=== PATIENT | female | born 1960 | race Caucasian/White ===

== ENCOUNTER 2018-05-27 12:14 | Inpatient (IN) ==
--- NOTE | 2018-05-27 12:22 | ED ---
HPI General Chief Complaint: Stroke Alert Stated Complaint: Stroke Alert/Evac Time Seen by Provider: 05/27/18 12:17 Source: patient and EMS Mode of arrival: EMS Limitations: language barrier History of Present Illness Onset (ago): hour(s) (Patient was last seen normal according to last night after going to sleep. Woke up today with slurred speech) Timing confirmed by: spouse Location: speech and dysarthria History of same: No Severity: moderate Relieving factors: none Exacerbating factors: none On Anticoagulants: No Associated symptoms: denies other symptoms Treatments Prior to Arrival: none Related Data Home Medications Medication Instructions Recorded Confirmed aspirin 325 mg PO DAILY 05/27/18 05/27/18 Previous Rx's Medication Instructions Recorded amlodipine [Norvasc] 2.5 mg PO DAILY #30 tab 06/01/18 atorvastatin 40 mg PO HS #30 tab 06/01/18 clonidine [[id number]] 1 patch TRANSDERMAL Q7D 30 Days 06/01/18 each clopidogrel [Plavix] 75 mg PO DAILY #30 tab 06/01/18 Allergies Allergy/AdvReac Type Severity Reaction Status Date / Time dopamine Allergy Mild palpitation Verified 05/27/18 12:24 s Review of Systems Except as stated in HPI: all other systems reviewed are negative PMFSH History History Provided By: Patient, Medical Record and Casting Inspector / EMT Social History Social History Substance History: No History of Abuse Second Hand Smoke Exposure: No Smoking Status: Current every day smoker Tobacco Type: Cigarettes How Often Do You Have a Drink Containing Alcohol: 2 to 3 times a week Recent Travel in [facility] within the Last 8 Weeks: No Recent Out of Country Travel within the Last 8 Weeks: No Exam Narrative Exam Narrative: GENERAL: Well-nourished, well-developed patient in no apparent distress. SKIN: Warm and dry. HEAD: Atraumatic. Normocephalic. EYES: Pupils equal and round. No scleral icterus. No injection or drainage. ENT: No nasal bleeding or discharge. Mucous membranes pink and moist. NECK: Trachea midline. No JVD. CARDIOVASCULAR: Regular rate and rhythm. no rubs or gallops RESPIRATORY: No accessory muscle use. Clear to auscultation. Breath sounds equal bilaterally. GASTROINTESTINAL: Abdomen soft, non-tender, nondistended. No rebound or guarding MUSCULOSKELETAL: Extremities without clubbing, cyanosis, or edema. No obvious deformities. NEUROLOGICAL: Awake and alert. No obvious cranial nerve deficits. Motor grossly within normal limits. Five out of 5 muscle strength in the arms and legs. Slurred unintelligible speech. PSYCHIATRIC: Appropriate mood and affect; insight and judgment normal. Course Initial Documented Vital Signs Pulse Oximetry 93 L 05/27/18 12:24 Last Documented Vital Signs Temperature 97.7 F 06/01/18 12:00 Pulse Rate 61 06/01/18 13:25 Respiratory Rate 17 06/01/18 12:00 Blood Pressure 125/87 06/01/18 12:00 Pulse Oximetry 94 L 06/01/18 12:00 Critical Care Time Critical Care Time: Yes Total Critical Care Time: 45 Attestation: Aggregate critical care time was 45 minutes. Time to perform other separately billable procedures was not included in the critical care time. My time did not include minutes spent treating any other patients simultaneously or on activities that did not directly contribute to the patient's treatment. The services I provided to this patient were to treat and/or prevent clinically significant deterioration that could result in: [Intracranial hemorrhage, permanent neurological disability versus ] I provided critical care services requiring my management, as noted below: Chart data review, documentation time, medication orders and management, vital sign assessments/reviewing monitor data, ordering and reviewing lab tests, ordering and interpreting/reviewing x-rays and diagnostic studies, care of the patient and discussion of the patient with the admitting physicians. NIH Stroke Scale NIH Stroke Scale Level of Consciousness: 0-Alert Orientation Questions: 0-Answers both correct Responds to Commands: 0-Both tasks correct Gaze Eye Movement: 0-Horizontal movement WNL Visual Blak[place]: 0-No visual field defect Facial Movement: 0-Normal Motor Functions Arm LEFT: 0-No drift Motor Functions Arm RIGHT: 0-No drift Motor Functions Leg LEFT: 0-No drift Motor Functions Leg RIGHT: 0-No drift Limb Ataxia: 0-No ataxia Sensory Loss: 0-No sensory loss Best Language: 2-Severe aphasia Articulation: 2-Severe dysarthria Extinction or Inattention Sensory: 0-Absent Total: 4 Medical Decision Making MDM Narrative Medical decision making narrative: Discussed case with Dr. Vanessa neurologist, who stated patient is not a candidate for TPA due to the unknown onset of symptoms, since patient woke up with symptoms dr sevilla at bedside evaluated patient and corroborated history with who CONFIRMED that patient woke up with these symptoms. patient is NOT a tpa candidate discussed carotid stenosis with vascular surgeon dr Boyer Lab Data Lab results reviewed: Yes I reviewed the patient's lab results. Lab results narrative: In particular creatinine is 0.6 resulted from i-STAT, sodium 143, potassium 4.1, chloride 110, BUN 5, glucose 83, hemoglobin 13.3, hematocrit 39 Result diagrams: 05/29/18 06:34 05/27/18 12:17 Lab Results 05/27/18 05/27/18 05/27/18 Range/Units 12:17 12:17 12:17 WBC 5.6 (4.0-11.0) th/mm3 RBC 4.47 (4.00-5.30) mil/mm3 Hgb 14.6 (11.6-15.3) gm/dL POC Hgb (Calc) (11.6-15.3) g/dL Hct 42.2 (35.0-46.0) % POC Hct (35-46.0) % MCV 94.5 (80.0-100.0) fL MCH 32.7 (27.0-34.0) pg MCHC 34.6 (32.0-36.0) % RDW 13.2 (11.6-17.2) % Plt Count 213 (150-450) th/mm3 MPV 8.0 (7.0-11.0) fL Neut % (Auto) 38.3 (16.0-70.0) % Lymph % (Auto) 48.9 H (9.0-44.0) % [place] % (Auto) 7.8 (0.0-8.0) % Eos % (Auto) 4.2 H (0.0-4.0) % Baso % (Auto) 0.8 (0.0-2.0) % Neut # (Auto) 2.1 (1.8-7.7) th/mm3 Lymph # (Auto) 2.7 (1.0-4.8) th/mm3 [place] # (Auto) 0.4 (0.0-0.9) th/mm3 Eos # (Auto) 0.2 (0.0-0.4) th/mm3 Baso # (Auto) 0.0 (0.0-0.2) th/mm3 WBC Differential . Differential Comment Auto diff final PT 9.5 L (9.8-11.6) sec INR 0.9 Ratio APTT 24.1 L (24.3-30.1) sec POC Sodium (137-144) mmol/L Sodium 145 (136-145) meq/L POC Potassium (3.6-5.0) mmol/L Potassium 4.3 (3.5-5.1) meq/L POC Chloride (102-111) mmol/L Chloride 113 H (98-107) meq/L Carbon Dioxide 20.1 L (21.0-32.0) meq/L Anion Gap 12 (5-15) meq/L POC BUN (5-21) mg/dL BUN 7 (7-18) mg/dL Creatinine 0.64 (0.50-1.00) mg/dL POC Creatinine (0.6-1.3) mg/dL Estimated GFR 80 L (>89) mL/min POC Glucose (68-110) mg/dL Random Glucose 80 (74-106) mg/dL Calcium 9.7 (8.5-10.1) mg/dL Total Bilirubin 0.3 (0.2-1.0) mg/dL AST 21 (15-37) U/L ALT 17 (10-53) U/L Alkaline Phosphatase 134 H (45-117) U/L Total Creatine Kinase 83 (26-192) U/L Troponin I Less than 0.02 L (0.02-0.05) ng/mL Total Protein 7.5 (6.4-8.2) g/dL Albumin 3.6 (3.4-5.0) g/dL Triglycerides (42-150) mg/dL Cholesterol (120-200) mg/dL LDL Cholesterol, Calc (0-99) mg/dL HDL Cholesterol (40.0-60.0) mg/dL Cholesterol/HDL Ratio Ratio Urine Color (Yellw/Straw) Urine Clarity (Clear) Urine pH (5.0-8.5) Ur Specific Pinson (1.002-1.035) Urine Protein (Neg-Trace) mg/dL Urine Glucose (UA) (Negative) mg/dL Urine Ketones (Negative) mg/dL Urine Occult Blood (Negative) Urine Nitrate (Negative) Urine Bilirubin (Negative) Urine Urobilinogen (Less than 2) mg/dL Ur Leukocyte Esterase (Negative) Urine RBC (0-3) /hpf Urine WBC (0-5) /hpf Ur Squamous Epith Cells (0-5) /hpf Hyaline Casts (0-3) /lpf Micro UA Comment Urine Culture Comments Nasal Screen MRSA (PCR) (Negative) Urine Opiates Screen (Neg) Ur Barbiturates Screen (Neg) Ur Amphetamines Screen (Neg) U Benzodiazepines Scrn (Neg) Urine Cocaine Screen (Neg) U Cannabinoids Screen (Neg) Serum Alcohol 42 H (0-5) mg/dL Blood Type Antibody Screen 05/27/18 05/27/18 05/27/18 Range/Units 12:17 12:17 16:45 WBC (4.0-11.0) th/mm3 RBC (4.00-5.30) mil/mm3 Hgb (11.6-15.3) gm/dL POC Hgb (Calc) 13.3 (11.6-15.3) g/dL Hct (35.0-46.0) % POC Hct 39.0 (35-46.0) % MCV (80.0-100.0) fL MCH (27.0-34.0) pg MCHC (32.0-36.0) % RDW (11.6-17.2) % Plt Count (150-450) th/mm3 MPV (7.0-11.0) fL Neut % (Auto) (16.0-70.0) % Lymph % (Auto) (9.0-44.0) % [place] % (Auto) (0.0-8.0) % Eos % (Auto) (0.0-4.0) % Baso % (Auto) (0.0-2.0) % Neut # (Auto) (1.8-7.7) th/mm3 Lymph # (Auto) (1.0-4.8) th/mm3 [place] # (Auto) (0.0-0.9) th/mm3 Eos # (Auto) (0.0-0.4) th/mm3 Baso # (Auto) (0.0-0.2) th/mm3 WBC Differential Differential Comment PT (9.8-11.6) sec INR Ratio APTT (24.3-30.1) sec POC Sodium 143 (137-144) mmol/L Sodium (136-145) meq/L POC Potassium 4.1 (3.6-5.0) mmol/L Potassium (3.5-5.1) meq/L POC Chloride 110 (102-111) mmol/L Chloride (98-107) meq/L Carbon Dioxide (21.0-32.0) meq/L Anion Gap (5-15) meq/L POC BUN 5 (5-21) mg/dL BUN (7-18) mg/dL Creatinine (0.50-1.00) mg/dL POC Creatinine 0.6 (0.6-1.3) mg/dL Estimated GFR (>89) mL/min POC Glucose 83 (68-110) mg/dL Random Glucose (74-106) mg/dL Calcium (8.5-10.1) mg/dL Total Bilirubin (0.2-1.0) mg/dL AST (15-37) U/L ALT (10-53) U/L Alkaline Phosphatase (45-117) U/L Total Creatine Kinase (26-192) U/L Troponin I (0.02-0.05) ng/mL Total Protein (6.4-8.2) g/dL Albumin (3.4-5.0) g/dL Triglycerides (42-150) mg/dL Cholesterol (120-200) mg/dL LDL Cholesterol, Calc (0-99) mg/dL HDL Cholesterol (40.0-60.0) mg/dL Cholesterol/HDL Ratio Ratio Urine Color (Yellw/Straw) Urine Clarity (Clear) Urine pH (5.0-8.5) Ur Specific Pinson (1.002-1.035) Urine Protein (Neg-Trace) mg/dL Urine Glucose (UA) (Negative) mg/dL Urine Ketones (Negative) mg/dL Urine Occult Blood (Negative) Urine Nitrate (Negative) Urine Bilirubin (Negative) Urine Urobilinogen (Less than 2) mg/dL Ur Leukocyte Esterase (Negative) Urine RBC (0-3) /hpf Urine WBC (0-5) /hpf Ur Squamous Epith Cells (0-5) /hpf Hyaline Casts (0-3) /lpf Micro UA Comment Urine Culture Comments Nasal Screen MRSA (PCR) (Negative) Urine Opiates Screen Neg (Neg) Ur Barbiturates Screen Neg (Neg) Ur Amphetamines Screen Neg (Neg) U Benzodiazepines Scrn Neg (Neg) Urine Cocaine Screen Neg (Neg) U Cannabinoids Screen Neg (Neg) Serum Alcohol (0-5) mg/dL Blood Type A Positive Antibody Screen Negative 05/27/18 05/27/18 05/27/18 Range/Units 16:45 17:36 19:45 WBC 7.1 (4.0-11.0) th/mm3 RBC 4.40 (4.00-5.30) mil/mm3 Hgb 14.0 (11.6-15.3) gm/dL POC Hgb (Calc) (11.6-15.3) g/dL Hct 41.4 (35.0-46.0) % POC Hct (35-46.0) % MCV 94.0 (80.0-100.0) fL MCH 31.9 (27.0-34.0) pg MCHC 33.9 (32.0-36.0) % RDW 13.4 (11.6-17.2) % Plt Count 189 (150-450) th/mm3 MPV 8.4 (7.0-11.0) fL Neut % (Auto) (16.0-70.0) % Lymph % (Auto) (9.0-44.0) % [place] % (Auto) (0.0-8.0) % Eos % (Auto) (0.0-4.0) % Baso % (Auto) (0.0-2.0) % Neut # (Auto) (1.8-7.7) th/mm3 Lymph # (Auto) (1.0-4.8) th/mm3 [place] # (Auto) (0.0-0.9) th/mm3 Eos # (Auto) (0.0-0.4) th/mm3 Baso # (Auto) (0.0-0.2) th/mm3 WBC Differential Differential Comment PT (9.8-11.6) sec INR Ratio APTT (24.3-30.1) sec POC Sodium (137-144) mmol/L Sodium (136-145) meq/L POC Potassium (3.6-5.0) mmol/L Potassium (3.5-5.1) meq/L POC Chloride (102-111) mmol/L Chloride (98-107) meq/L Carbon Dioxide (21.0-32.0) meq/L Anion Gap (5-15) meq/L POC BUN (5-21) mg/dL BUN (7-18) mg/dL Creatinine (0.50-1.00) mg/dL POC Creatinine (0.6-1.3) mg/dL Estimated GFR (>89) mL/min POC Glucose (68-110) mg/dL Random Glucose (74-106) mg/dL Calcium (8.5-10.1) mg/dL Total Bilirubin (0.2-1.0) mg/dL AST (15-37) U/L ALT (10-53) U/L Alkaline Phosphatase (45-117) U/L Total Creatine Kinase (26-192) U/L Troponin I (0.02-0.05) ng/mL Total Protein (6.4-8.2) g/dL Albumin (3.4-5.0) g/dL Triglycerides (42-150) mg/dL Cholesterol (120-200) mg/dL LDL Cholesterol, Calc (0-99) mg/dL HDL Cholesterol (40.0-60.0) mg/dL Cholesterol/HDL Ratio Ratio Urine Color Yellow (Yellw/Straw) Urine Clarity Clear (Clear) Urine pH 5.0 (5.0-8.5) Ur Specific [place]inson 1.034 (1.002-1.035) Urine Protein Negative (Neg-Trace) mg/dL Urine Glucose (UA) Negative (Negative) mg/dL Urine Ketones Negative (Negative) mg/dL Urine Occult Blood Negative (Negative) Urine Nitrate Negative (Negative) Urine Bilirubin Negative (Negative) Urine Urobilinogen Less than 2 (Less than 2) mg/dL Ur Leukocyte Esterase Negative (Negative) Urine RBC Less than 1 (0-3) /hpf Urine WBC Less than 1 (0-5) /hpf Ur Squamous Epith Cells <1 (0-5) /hpf Hyaline Casts 1 (0-3) /lpf Micro UA Comment Culture not ind Urine Culture Comments Culture not ind Nasal Screen MRSA (PCR) Not detected (Negative) Urine Opiates Screen (Neg) Ur Barbiturates Screen (Neg) Ur Amphetamines Screen (Neg) U Benzodiazepines Scrn (Neg) Urine Cocaine Screen (Neg) U Cannabinoids Screen (Neg) Serum Alcohol (0-5) mg/dL Blood Type Antibody Screen 05/27/18 05/27/18 05/28/18 Range/Units 19:45 20:53 01:43 WBC 7.4 (4.0-11.0) th/mm3 RBC 4.25 (4.00-5.30) mil/mm3 Hgb 13.6 (11.6-15.3) gm/dL POC Hgb (Calc) (11.6-15.3) g/dL Hct 39.6 (35.0-46.0) % POC Hct (35-46.0) % MCV 93.3 (80.0-100.0) fL MCH 31.9 (27.0-34.0) pg MCHC 34.2 (32.0-36.0) % RDW 13.3 (11.6-17.2) % Plt Count 177 (150-450) th/mm3 MPV 8.1 (7.0-11.0) fL Neut % (Auto) (16.0-70.0) % Lymph % (Auto) (9.0-44.0) % [place] % (Auto) (0.0-8.0) % Eos % (Auto) (0.0-4.0) % Baso % (Auto) (0.0-2.0) % Neut # (Auto) (1.8-7.7) th/mm3 Lymph # (Auto) (1.0-4.8) th/mm3 [place] # (Auto) (0.0-0.9) th/mm3 Eos # (Auto) (0.0-0.4) th/mm3 Baso # (Auto) (0.0-0.2) th/mm3 WBC Differential Differential Comment PT (9.8-11.6) sec INR Ratio APTT 45.5 H D (24.3-30.1) sec POC Sodium (137-144) mmol/L Sodium (136-145) meq/L POC Potassium (3.6-5.0) mmol/L Potassium (3.5-5.1) meq/L POC Chloride (102-111) mmol/L Chloride (98-107) meq/L Carbon Dioxide (21.0-32.0) meq/L Anion Gap (5-15) meq/L POC BUN (5-21) mg/dL BUN (7-18) mg/dL Creatinine (0.50-1.00) mg/dL POC Creatinine (0.6-1.3) mg/dL Estimated GFR (>89) mL/min POC Glucose (68-110) mg/dL Random Glucose (74-106) mg/dL Calcium (8.5-10.1) mg/dL Total Bilirubin (0.2-1.0) mg/dL AST (15-37) U/L ALT (10-53) U/L Alkaline Phosphatase (45-117) U/L Total Creatine Kinase (26-192) U/L Troponin I Less than 0.02 L (0.02-0.05) ng/mL Total Protein (6.4-8.2) g/dL Albumin (3.4-5.0) g/dL Triglycerides (42-150) mg/dL Cholesterol (120-200) mg/dL LDL Cholesterol, Calc (0-99) mg/dL HDL Cholesterol (40.0-60.0) mg/dL Cholesterol/HDL Ratio Ratio Urine Color (Yellw/Straw) Urine Clarity (Clear) Urine pH (5.0-8.5) Ur Specific Pinson (1.002-1.035) Urine Protein (Neg-Trace) mg/dL Urine Glucose (UA) (Negative) mg/dL Urine Ketones (Negative) mg/dL Urine Occult Blood (Negative) Urine Nitrate (Negative) Urine Bilirubin (Negative) Urine Urobilinogen (Less than 2) mg/dL Ur Leukocyte Esterase (Negative) Urine RBC (0-3) /hpf Urine WBC (0-5) /hpf Ur Squamous Epith Cells (0-5) /hpf Hyaline Casts (0-3) /lpf Micro UA Comment Urine Culture Comments Nasal Screen MRSA (PCR) (Negative) Urine Opiates Screen (Neg) Ur Barbiturates Screen (Neg) Ur Amphetamines Screen (Neg) U Benzodiazepines Scrn (Neg) Urine Cocaine Screen (Neg) U Cannabinoids Screen (Neg) Serum Alcohol (0-5) mg/dL Blood Type Antibody Screen 05/28/18 05/29/18 05/29/18 Range/Units 01:43 06:34 06:34 WBC 9.4 (4.0-11.0) th/mm3 RBC 4.30 (4.00-5.30) mil/mm3 Hgb 14.1 (11.6-15.3) gm/dL POC Hgb (Calc) (11.6-15.3) g/dL Hct 41.1 (35.0-46.0) % POC Hct (35-46.0) % MCV 95.6 (80.0-100.0) fL MCH 32.8 (27.0-34.0) pg MCHC 34.3 (32.0-36.0) % RDW 13.4 (11.6-17.2) % Plt Count 190 (150-450) th/mm3 MPV 8.2 (7.0-11.0) fL Neut % (Auto) (16.0-70.0) % Lymph % (Auto) (9.0-44.0) % [place] % (Auto) (0.0-8.0) % Eos % (Auto) (0.0-4.0) % Baso % (Auto) (0.0-2.0) % Neut # (Auto) (1.8-7.7) th/mm3 Lymph # (Auto) (1.0-4.8) th/mm3 [place] # (Auto) (0.0-0.9) th/mm3 Eos # (Auto) (0.0-0.4) th/mm3 Baso # (Auto) (0.0-0.2) th/mm3 WBC Differential Differential Comment PT (9.8-11.6) sec INR Ratio APTT 59.5 H D (24.3-30.1) sec POC Sodium (137-144) mmol/L Sodium (136-145) meq/L POC Potassium (3.6-5.0) mmol/L Potassium (3.5-5.1) meq/L POC Chloride (102-111) mmol/L Chloride (98-107) meq/L Carbon Dioxide (21.0-32.0) meq/L Anion Gap (5-15) meq/L POC BUN (5-21) mg/dL BUN (7-18) mg/dL Creatinine (0.50-1.00) mg/dL POC Creatinine (0.6-1.3) mg/dL Estimated GFR (>89) mL/min POC Glucose (68-110) mg/dL Random Glucose (74-106) mg/dL Calcium (8.5-10.1) mg/dL Total Bilirubin (0.2-1.0) mg/dL AST (15-37) U/L ALT (10-53) U/L Alkaline Phosphatase (45-117) U/L Total Creatine Kinase (26-192) U/L Troponin I (0.02-0.05) ng/mL Total Protein (6.4-8.2) g/dL Albumin (3.4-5.0) g/dL Triglycerides 90 (42-150) mg/dL Cholesterol 310 H (120-200) mg/dL LDL Cholesterol, Calc 217 H (0-99) mg/dL HDL Cholesterol 75.0 H (40.0-60.0) mg/dL Cholesterol/HDL Ratio 4.13 Ratio Urine Color (Yellw/Straw) Urine Clarity (Clear) Urine pH (5.0-8.5) Ur Specific Pinson (1.002-1.035) Urine Protein (Neg-Trace) mg/dL Urine Glucose (UA) (Negative) mg/dL Urine Ketones (Negative) mg/dL Urine Occult Blood (Negative) Urine Nitrate (Negative) Urine Bilirubin (Negative) Urine Urobilinogen (Less than 2) mg/dL Ur Leukocyte Esterase (Negative) Urine RBC (0-3) /hpf Urine WBC (0-5) /hpf Ur Squamous Epith Cells (0-5) /hpf Hyaline Casts (0-3) /lpf Micro UA Comment Urine Culture Comments Nasal Screen MRSA (PCR) (Negative) Urine Opiates Screen (Neg) Ur Barbiturates Screen (Neg) Ur Amphetamines Screen (Neg) U Benzodiazepines Scrn (Neg) Urine Cocaine Screen (Neg) U Cannabinoids Screen (Neg) Serum Alcohol (0-5) mg/dL Blood Type Antibody Screen Imaging Data My impression: I reviewed all images as well as radiological reports shared the information with vascular surgeon and admitting physicians Radiologist's impression: Chest X-Ray 05/27/18 12:24 CONCLUSION: No acute cardiopulmonary findings. Head CT 05/27/18 12:24 CONCLUSION: 1. Prominent nonspecific white matter changes left frontal periventricular white matter. 2. Otherwise unremarkable CT brain. Head CTA 05/27/18 12:24 CONCLUSION: High-grade stenosis at the origin of the left internal carotid artery and the [place] appears intact except for chronic atelectatic changes. Neck CTA 05/27/18 12:24 CONCLUSION: 1. Left carotid: Extensive plaquing at the bifurcation with both hard and soft plaque present resulting in stenosis estimated to be in the range of 90% or greater by NASCET criteria. 2. Right carotid: Mild plaquing at the bifurcation there is both hard and soft plaque present. This results in a mild degree of stenosis in the origin of the right internal carotid. Head CT 05/30/18 17:03 CONCLUSION: Interval development of a new ill-defined hypodensity in the left novak radiata. The appearance is nonspecific, but since it has developed in the last 3 days, a nonhemorrhagic infarction is in the differential considerations. Head CTA 05/30/18 17:08 CONCLUSION: 1. 3 mm anterior communicating aneurysm. 2. Otherwise negative CTA [place]. Neck CTA 05/30/18 17:08 CONCLUSION: 1. Expected postsurgical changes from left carotid endarterectomy. The left carotid system is widely patent. 2. No stenosis in the right carotid. 3. Right dominant vertebral system. Discharge Plan Discharge Disposition Patient Disposition: 30 Still Patient Discharge Condition Condition: Stable Discharge Order Discharge Orders: Discharge Order (Routine); Ordered 06/01/18 Ordered By: John Ross Discharge Details Anticipated Discharge Date: 06/01/18 Diagnosis: Brain TIA, Carotid artery stenosis Physicians Team ED Provider: Gonzalo Morillo Primary Care Provider: Primary Care Yumiko,Hollie Attending Provider: John Ross Other Providers: Fannie Lyons Mandeep Status ED Status: Left Department Discharge Information Discharge Date/Time: 05/27/18 17:22
--- NOTE | 2018-05-27 12:39 | CT ---
EXAM DATE: 05/27/2018 12:32 PM EDT AGE/SEX: 89 years / Female INDICATIONS: Stroke alert, right sided weakness and slurred speech. CLINICAL DATA: This is the patient's initial encounter. Patient reports that signs and symptoms have been present for 1 day and indicates a pain score of 0/10. MEDICAL/SURGICAL HISTORY: Cardiovascular disease. Pacemaker. RADIATION DOSE: 56.35 CTDI (mGy) COMPARISON: No prior exams available for comparison. Report was called by Dr. Preston to [facility] at 12:37 PM] TECHNIQUE: CT of the head without contrast. Using automated exposure control and adjustment of the mA and/or kV according to patient size, radiation dose was kept as low as reasonably achievable to ob tain optimal diagnostic quality images. DICOM format image data is available electronically for revi ew and comparison. FINDINGS: Cerebrum: The ventricles are normal for age. Prominent area of low-density in the left frontal periv entricular white matter. No evidence of midline shift, mass lesion, hemorrhage or acute infarction. No extraaxial fluid collections are seen. Posterior Fossa: The cerebellum and brainstem are intact. The 4th ventricle is midline. The cerebe llopontine angle is unremarkable. Extracranial: The visualized portion of the orbits is intact. Skull: The calvaria is intact. No evidence of skull fracture. CONCLUSION: 1. Prominent nonspecific white matter changes left frontal periventricular white matter. 2. Otherwise unremarkable CT brain. Electronically signed by: Ryan Preston MD 05/27/2018 12:37 PM EDT
[2018-05-27 12:40] LABS: Baso % (Auto) 0.8 % (0.0-2.0); Eos # (Auto) 0.2 th/mm3 (0.0-0.4); Eos % (Auto) 4.2 % (0.0-4.0); Hematocrit 42.2 % (35.0-46.0); Hemoglobin 14.6 gm/dL (11.6-15.3); Lymph # (Auto) 2.7 th/mm3 (1.0-4.8); Lymph % (Auto) 48.9 % (9.0-44.0); Mean Corpuscular HGB Conc 34.6 % (32.0-36.0); Mean Corpuscular Hemoglobin 32.7 pg (27.0-34.0); Mean Corpuscular Volume 94.5 fL (80.0-100.0); Mono # (Auto) 0.4 th/mm3 (0.0-0.9); Mono % (Auto) 7.8 % (0.0-8.0); Neut # (Auto) 2.1 th/mm3 (1.8-7.7); Neut % (Auto) 38.3 % (16.0-70.0); Platelet Count 213 th/mm3 (150-450); Red Blood Count 4.47 mil/mm3 (4.00-5.30); Red Cell Distribution Width 13.2 % (11.6-17.2); White Blood Count 5.6 th/mm3 (4.0-11.0)
--- NOTE | 2018-05-27 12:55 | CT ---
EXAM DATE: 05/27/2018 12:43 PM EDT AGE/SEX: 89 years / Female INDICATIONS: Stroke alert, right sided weakness and slurred speech. CLINICAL DATA: This is the patient's initial encounter. Patient reports that signs and symptoms have been present for 1 day and indicates a pain score of 0/10. MEDICAL/SURGICAL HISTORY: Cardiovascular disease. Pacemaker. RADIATION DOSE: 11.19 CTDI (mGy) ; Combined studies COMPARISON: No prior exams available for comparison. TECHNIQUE: Volumetric scanning was performed using a multi-row detector CT scanner during bolus infu nohemi of 75 ml Visipaque 320 (iodixanol) nonionic water-soluble contrast as a cumulative dose for mul tiple exams. The data was post processed with a variety of visualization algorithms including full volume maximum intensity projection, multi-planar sliding thin slab reformation, curved planar reform ation, and surface rendering techniques. Using automated exposure control and adjustment of the mA a nd/or kV according to patient size, radiation dose was kept as low as reasonably achievable to obtain optimal diagnostic quality images. DICOM format image data is available electronically for review a nd comparison. FINDINGS: Slight atherosclerotic changes are seen involving multiple branches bilaterally without vessel trunca tion or filling defects. There is high-grade stenosis at the origin of the left internal carotid david ry on the order of 95-98% with atherosclerotic plaquing at this site. CONCLUSION: High-grade stenosis at the origin of the left internal carotid artery and the [place] of [place] appears intact except for chronic atelectatic changes. Electronically signed by: Shirley Givens MD 05/27/2018 12:53 PM EDT
[2018-05-27 12:59] LABS: Activated Partial Thrombo Time 24.1 sec (24.3-30.1); INR 0.9 Ratio; Prothrombin Time 9.5 sec (9.8-11.6)
[2018-05-27 13:09] LABS: Albumin 3.6 g/dL (3.4-5.0); Anion Gap 12 meq/L (5-15); Blood Urea Nitrogen 7 mg/dL (7-18); Calcium 9.7 mg/dL (8.5-10.1); Carbon Dioxide 20.1 meq/L (21.0-32.0); Chloride 113 meq/L (98-107); Glomerular Filtration Rate 80 mL/min (>89); Glucose,Random 80 mg/dL (74-106); Sodium 145 meq/L (136-145)
[2018-05-27 13:11] LABS: Alcohol 42 mg/dL (0-5)
--- NOTE | 2018-05-27 13:41 | CT ---
EXAM DATE: 05/27/2018 1:17 PM EDT AGE/SEX: 89 years / Female INDICATIONS: Stroke alert, right sided weakness and slurred speech. CLINICAL DATA: This is the patient's initial encounter. Patient reports that signs and symptoms have been present for 1 day and indicates a pain score of 0/10. MEDICAL/SURGICAL HISTORY: Cardiovascular disease. Pacemaker. RADIATION DOSE: 11.19 CTDI (mGy) COMPARISON: No prior exams available for comparison. TECHNIQUE: Volumetric scanning was performed using a multirow detector CT scanner during bolus infus ion of 75 ml Visipaque 320 (iodixanol) nonionic water-soluble contrast as a cumulative dose for mult iple exams. The data was postprocessed with a variety of visualization algorithms including full-vo lume maximum intensity projection, multiplanar sliding thin-slab reformation, curved-planar reformati on, and surface-rendering techniques. Using automated exposure control and adjustment of the mA and/ or kV according to patient size, radiation dose was kept as low as reasonably achievable to obtain op timal diagnostic quality images. DICOM format image data is available electronically for review and comparison. Elevated flow velocities and ICA/CCA ratios have been found to correlate with increased degrees of ve ssel stenosis, calculated as percentage of diameter relative to a normal segment of distal ICA/CCA. FINDINGS: Aortic arch: There is normal anatomic branching of the great vessels from the arch. The origins of th e great vessels are widely patent. Right carotid: The right common carotid is widely patent. There is atherosclerotic plaquing at the bi furcation. There is both hard and soft plaque present. This results in a mild degree of stenosis in t he origin of the right internal carotid. In several projections this is estimated to be in the range of 15-20% by NASCET criteria. Left carotid: The left common carotid is widely patent. There is extensive atherosclerotic plaquing a t the bifurcation with both hard and soft plaque present. This results in a very high-grade stenosis in the origin of the left internal carotid. In several projections this is estimated to be in the ran ge of 90% or greater by NASCET criteria. The more cephalad portion of the internal carotid is patent. Vertebral circulation: Both vertebral arteries are patent. The limited portion of basilar circulation visualized is patent. CONCLUSION: 1. Left carotid: Extensive plaquing at the bifurcation with both hard and soft plaque present result ing in stenosis estimated to be in the range of 90% or greater by NASCET criteria. 2. Right carotid: Mild plaquing at the bifurcation there is both hard and soft plaque present. This results in a mild degree of stenosis in the origin of the right internal carotid. Electronically signed by: Armani Cazares MD 05/27/2018 1:39 PM EDT
[2018-05-27 13:52] LABS: Alanine Aminotransferase 17 U/L (10-53); Alkaline Phosphatase 134 U/L (45-117); Total Protein 7.5 g/dL (6.4-8.2)
--- NOTE | 2018-05-27 13:52 | XR ---
EXAM DATE: 05/27/2018 1:41 PM EDT AGE/SEX: 89 years / Female INDICATIONS: . Stroke alert. CLINICAL DATA: This is the patient's initial encounter. Patient reports that signs and symptoms have been present for 1 day and indicates a pain score of Nonresponsive. MEDICAL/SURGICAL HISTORY: . Unobtainable. Pacemaker. COMPARISON: No prior exams available for comparison. FINDINGS: The heart is at the upper limits of normal in size. The lungs are clear. There is a transvenous pacer in good position. The visualized bony structures are intact. CONCLUSION: No acute cardiopulmonary findings. Electronically signed by: Armani Cazares MD 05/27/2018 1:50 PM EDT
--- NOTE | 2018-05-27 13:54 | MB ---
cc: Indra Jim MD, PhD DATE: 05/27/2018 REASON FOR CONSULTATION: Stroke alert. HISTORY OF PRESENT ILLNESS: This is a very pleasant patient who has a history of pacemaker placement, coronary artery disease, OK in the past, who was well until this morning when she woke up around 10:00 a.m., was noted to have significant difficulty with her speech with dysarthria, difficulty getting words out. She had some weakness on the right arm as well. She tried to reach for some paper with the right arm and had difficulty coordinating the right arm. Her felt that she was normal yesterday when she went to sleep, but is definite that she woke up with these symptoms. He states they did not occur after awakening, but she woke up with them. He called the ambulance. By the time the paramedics got there apparently, her symptoms improved, her speech was almost back to normal, right-sided strength was better; however, she waxed and waned in the interim having increasing weakness on the right with more difficulty with speech, which has since improved somewhat, but not back to her baseline state. She has no prior history of stroke. She does not take any anticoagulants. She takes an aspirin a day. PAST MEDICAL HISTORY: She has history of pacemaker placement, history of coronary artery disease with coronary stent, history of OK in the past. MEDICATIONS: The only medicine she takes at home is aspirin 325 mg daily, but she states she ran out of this several days ago. SOCIAL HISTORY: She does smoke. She does drink alcohol 2-3 times a week. NEUROLOGICAL EXAMINATION: VITAL SIGNS: Blood pressure 155/91, pulse is 60, respiratory rate is 18. HIGHER CORTICAL FUNCTION: She is alert. Her speech is very dysarthric. She has somewhat difficulty with expression. Mild expressive aphasia is present. She can repeat simple phrases. She can follow commands. There is no neglect. CRANIAL NERVES: She has got a very minimal right upper motor neuron 7 palsy. Pupils 2 mm, symmetric and reactive. The extraocular movements are intact. MOTOR EXAM: At the present time, she has 5/5 strength of all major groups in both upper and lower extremities. She has no pronator drift. Reflexes are 2+ biceps symmetric, 1+ brachioradialis symmetric, 1+ triceps symmetric, 2+ patella symmetric, 1+ ankle symmetric. There is no Babinski present. SENSORY EXAM: Intact. IMAGING STUDIES: CT of the brain reveals no acute change present. CT angiogram of the brain is normal with no evidence of large vessel occlusion. CTA of the neck, however, reveals a high-grade stenosis of the left internal carotid artery at its origin and this is approximately 95-98%. LABORATORY DATA: The white count is 5600; hemoglobin 14.6; hematocrit 42.2%; platelet count is 213,000. The PT is 9.5, INR 1.9, APTT 24.1. Sodium is 143, potassium 4.1, chloride 110, CO2 of 20, BUN is 5, creatinine 0.64, GFR is 80, glucose is 83. AST pending. ALT pending. IMPRESSION AND RECOMMENDATIONS: Left hemisphere stroke versus crescendo transient ischemic attack, most likely related to high-grade left internal carotid artery stenosis. The patient's NIH stroke scale is a 4. She has been having a waxing and waning course. She is not a candidate for IV TPA because she awoke with these symptoms and therefore the onset is unknown. There is no evidence of any large vessel occlusion on the brain CTA to indicate intravascular therapy. Regarding the high-grade carotid stenosis, I spoke to Dr. Lyons of the vascular surgery service who recommended starting IV heparin and he will be seeing the patient shortly as well for his recommendations. For the time being, we will keep the patient at bedrest with the head of bed flat. We will start her on IV heparin per ischemic stroke protocol. Thank you for asking me to see this pleasant patient in consultation. Indra Jim MD, PhD JELENA/SINTIA , 01:24 PM , 01:52 PM
[2018-05-27 14:00] LABS: Aspartate Aminotransferase 21 U/L (15-37); Creatine Kinase 83 U/L (26-192); Potassium 4.3 meq/L (3.5-5.1)
[2018-05-27] MEDS ORDERED: [UNRECOGNIZED DRUG - REMARK] OTHER SCH (14:00)
[2018-05-27] MEDS ORDERED: Bisacodyl 10 MG Supp RECTAL PRN (14:02)
[2018-05-27] MEDS: Heparin Drip 25,000 UNIT/250 ML BAG IV.CONT PRN (14:09)
--- NOTE | 2018-05-27 16:34 | P.HP ---
History of Present Illness Primary Care Physician: No Primary Care Physician Chief Complaint: Right-sided weakness, speech problems History of Present Illness: Ms. Herminia Small is a 57-year-old female with a history of tobacco abuse, CAD, symptomatic bradycardia status post pacemaker placement who presented to the emergency department due to right-sided weakness as well as slurred speech. She was last seen normal at bedtime on 05/26/2018. This morning she woke up and went to the bathroom. As she was trying to reach for toilet paper she felt a right arm weakness. She was able to come to the kitchen area and sat down. However her speech was noted to be slurred and difficult to understand. Patient 's called 911 and within 10 minutes EMS came and by that time patient's symptoms were largely resolved. However in the emergency department she had several episodes of slurred speech. ED workup shows left-sided carotid artery stenosis about 90% or greater. Head CT did not identify any evidence of stroke. Neurology evaluated patient and recommended vascular surgery consultation due to high-grade internal carotid artery stenosis on the left side. At the time of this interview, patient is resting well. Denies any chest pain, shortness of breath, fever or chills. No cough or abdominal pain. No changes in bowel or bladder habits. Of note, she was taking Aspirin 325mg Qday except last two days. Past medical history: coronary artery disease status post stent placement in 2007, symptomatic bradycardia status post pacemaker placement Family history: Father, mother, brother and sister had heart disease, stroke, cancer. Social hx : Smokes 1 pack a day. - Diagnosis (1) Brain TIA (2) Carotid artery stenosis Inpatient Certification: I certify that the inpatient services were ordered in accordance with Medicare regulations governing the order. This includes certification that hospital inpatient services are reasonable and necessary and in the case of services not specified as inpatient-only under 42 CFR 419.22(n), that they are appropriately provided as inpatient services in accordance to with the 2-midnight benchmark under 43 CFR 412.3(e) [facility] - History History Provided By: Patient, Medical Record, Strip Cleaner / EMT - Medical History Medical History: Medical History (Last Updated 05/27/18 @ 13:02 by Bony Enrique RN) Myocardial infarction - Tobacco History Tobacco Use In Past 30 Days: Yes Smoking Status: Current every day smoker Tobacco Type: Cigarettes - Alcohol History How Often Do You Have a Drink Containing Alcohol: 2 to 3 times a week - Substance Use History Substance History: No History of Abuse - Travel History Recent Travel in the [place] Within the Last 8 Weeks: No Recent Travel Out of the Country Within the Last 8 Weeks: No - Immunization History Tetanus Immunization: <5 Years Hx Influenza Vaccine This Season: Unable to Assess Medications and Allergies Active Medications: Active Medications Al Hydroxide/Mg Hydroxide (Milk Of Magnesia Liq) 30 ml PO Q12H PRN PRN Reason: Mild Constipation Bisacodyl (Dulcolax Supp) 10 mg RECTAL DAILY PRN PRN Reason: SEVERE CONSITIPATION Sodium Chloride (Ns Inj) 1,000 mls @ 70 mls/hr IV.CONT .[id number] [facility] Stop: 05/28/18 02:47 Heparin Sodium/Dextrose (Heparin/D5w 25,000 U/250 Ml) 25,000 unit in 250 mls @ 12 mls/hr IV.CONT TITRATE PRN; Protocol PRN Reason: Per Protocol Last Admin: 05/27/18 14:09 Dose: 1,200 units/hr, 12 mls/hr Lactulose (Lactulose Liq) 30 ml PO DAILY PRN PRN Reason: SEVERE CONSITIPATION Miscellaneous Information ([facility] [place] [facility]) 1 each OTHER Q15M [facility] Sennosides (Senokot) 17.2 mg PO Q12H PRN PRN Reason: Moderate Constipation Sodium Chloride (Ns Flush) 2 ml IV.FLUSH PRN PRN PRN Reason: FLUSH AFTER USING IV ACCESS Temazepam (Restoril) 15 mg PO HS PRN PRN Reason: INSOMNIA Allergies Allergy/AdvReac Type Severity Reaction Status Date / Time dopamine Allergy Mild palpitation Verified 05/27/18 12:24 s Home Medications Medication Instructions Recorded Confirmed Type aspirin 325 mg PO DAILY 05/27/18 05/27/18 History Exam Vital signs: Vital Signs 05/27/18 12:24 05/27/18 12:28 05/27/18 13:07 Pulse Rate 60 60 Respiratory Rate 18 18 Blood Pressure 155/91 H Pulse Oximetry 93 L 95 99 05/27/18 14:02 05/27/18 16:29 Pulse Rate 57 L 66 Respiratory Rate 18 17 Blood Pressure 162/85 H 171/89 H Pulse Oximetry 100 Intake & Output 05/26/18 05/27/18 05/27/18 18:59 06:59 18:59 Weight 76.7 kg Narrative: GENERAL: This is a well-nourished, well-developed patient, in no apparent distress. SKIN: No rashes, ecchymoses or lesions. Warm and dry. HEAD: Atraumatic. Normocephalic. No temporal or scalp tenderness. EYES: Pupils equal round and reactive. No injection or drainage. ENT: Nose without bleeding, purulent drainage or septal hematoma. Airway patent. NECK: Trachea midline. No lymphadenopathy. Supple, nontender, no meningeal signs. CARDIOVASCULAR: Regular rate and rhythm without murmurs, gallops, or rubs. No JVD. RESPIRATORY: Clear to auscultation. Breath sounds equal bilaterally. No wheezes , rales, or rhonchi. GASTROINTESTINAL: Abdomen soft, non-tender, nondistended. No guarding. MUSCULOSKELETAL: Extremities without clubbing, cyanosis, or edema. Right upper extremity is slightly weaker than left. NEUROLOGICAL: Awake and alert. Cranial nerves II through XII intact. No focal neurological deficits. Normal speech. Results - Labs CBC & Chem 7: 05/27/18 19:45 05/27/18 12:17 Labs: Laboratory Results - last 24 hr 05/27/18 05/27/18 05/27/18 12:17 12:17 12:17 WBC 5.6 RBC 4.47 Hgb 14.6 POC Hgb (Calc) Hct 42.2 POC Hct MCV 94.5 MCH 32.7 MCHC 34.6 RDW 13.2 Plt Count 213 MPV 8.0 Neut % (Auto) 38.3 Lymph % (Auto) 48.9 H [place] % (Auto) 7.8 Eos % (Auto) 4.2 H Baso % (Auto) 0.8 Neut # (Auto) 2.1 Lymph # (Auto) 2.7 [place] # (Auto) 0.4 Eos # (Auto) 0.2 Baso # (Auto) 0.0 WBC Differential . Differential Comment Auto diff final PT 9.5 L INR 0.9 APTT 24.1 L POC Sodium Sodium 145 POC Potassium Potassium 4.3 POC Chloride Chloride 113 H Carbon Dioxide 20.1 L Anion Gap 12 POC BUN BUN 7 Creatinine 0.64 POC Creatinine Estimated GFR 80 L POC Glucose Random Glucose 80 Calcium 9.7 Total Bilirubin 0.3 AST 21 ALT 17 Alkaline Phosphatase 134 H Total Creatine Kinase 83 Troponin I Less than 0.02 L Total Protein 7.5 Albumin 3.6 Serum Alcohol 42 H Blood Type Antibody Screen 05/27/18 05/27/18 12:17 12:17 WBC RBC Hgb POC Hgb (Calc) 13.3 Hct POC Hct 39.0 MCV MCH MCHC RDW Plt Count MPV Neut % (Auto) Lymph % (Auto) [place] % (Auto) Eos % (Auto) Baso % (Auto) Neut # (Auto) Lymph # (Auto) [place] # (Auto) Eos # (Auto) Baso # (Auto) WBC Differential Differential Comment PT INR APTT POC Sodium 143 Sodium POC Potassium 4.1 Potassium POC Chloride 110 Chloride Carbon Dioxide Anion Gap POC BUN 5 BUN Creatinine POC Creatinine 0.6 Estimated GFR POC Glucose 83 Random Glucose Calcium Total Bilirubin AST ALT Alkaline Phosphatase Total Creatine Kinase Troponin I Total Protein Albumin Serum Alcohol Blood Type A Positive Antibody Screen Negative - Imaging Impressions Chest X-Ray 05/27/18 12:24 CONCLUSION: No acute cardiopulmonary findings. Head CT 05/27/18 12:24 CONCLUSION: 1. Prominent nonspecific white matter changes left frontal periventricular white matter. 2. Otherwise unremarkable CT brain. Head CTA 05/27/18 12:24 CONCLUSION: High-grade stenosis at the origin of the left internal carotid artery and the native of [place] appears intact except for chronic atelectatic changes. Neck CTA 05/27/18 12:24 CONCLUSION: 1. Left carotid: Extensive plaquing at the bifurcation with both hard and soft plaque present resulting in stenosis estimated to be in the range of 90% or greater by NASCET criteria. 2. Right carotid: Mild plaquing at the bifurcation there is both hard and soft plaque present. This results in a mild degree of stenosis in the origin of the right internal carotid. Caprini VTE Risk Assessment Caprini VTE Risk Assessment: Moderate/High Risk (score >= 2) Caprini Risk Assessment Model: Point Value = 1 Point Value = 2 Point Value = 3 Point Value = 5 Age 41-60 Minor surgery BMI > 25 kg/m2 Swollen legs Varicose veins or History of unexplained or recurrent spontaneous Oral contraceptives or hormone replacement Sepsis (< 1 month) Serious lung disease, including pneumonia (< 1 month) Abnormal pulmonary function Acute myocardial infarction Congestive heart failure (< 1 month) History of inflammatory bowel disease Medical patient at bed rest Age 61-74 Arthroscopic surgery Major open surgery (> 45 min) Laparoscopic surgery (> 45 min) Malignancy Confined to bed (> 72 hours) Immobilizing plaster cast Central venous access Age >= 75 History of VTE Family history of VTE Factor V Leiden Prothrombin [id number] Lupus anticoagulant Anticardiolipin antibodies Elevated serum homocysteine Heparin-induced thrombocytopenia Other congenital or acquired thrombophilia Stroke (< 1 month) Elective arthroplasty Hip, pelvis, or leg fracture Acute spinal cord injury (< 1 month) Prophylaxis Regimen: Total Risk Factor Score Risk Level Prophylaxis Regimen 0-1 Low Early ambulation 2 Moderate Order ONE of the following: *Sequential Compression Device (SCD) *Heparin 5000 units SQ BID 3-4 Higher Order ONE of the following medications: *Heparin 5000 units SQ TID *Enoxaparin/Lovenox 40 mg SQ daily (WT < 150 kg, CrCl > 30 mL/min) *Enoxaparin/Lovenox 30 mg SQ daily (WT < 150 kg, CrCl > 10-29 mL/min) *Enoxaparin/Lovenox 30 mg SQ BID (WT < 150 kg, CrCl > 30 mL/min) AND/OR *Sequential Compression Device (SCD) 5 or more Highest Order ONE of the following medications: *Heparin 5000 units SQ TID (Preferred with Epidurals) *Enoxaparin/Lovenox 40 mg SQ daily (WT < 150 kg, CrCl > 30 mL/min) *Enoxaparin/Lovenox 30 mg SQ daily (WT < 150 kg, CrCl > 10-29 mL/min) *Enoxaparin/Lovenox 30 mg SQ BID (WT < 150 kg, CrCl > 30 mL/min) AND *Sequential Compression Device (SCD) Assessment and Plan - Assessment (1) Brain TIA Code(s): G45.9 - Transient cerebral ischemic attack, unspecified Status: Acute (2) Carotid artery stenosis Code(s): I65.29 - Occlusion and stenosis of unspecified carotid artery Status : Acute - Plan Ms. Herminia Small is a pleasant 57-year-old female with a history of CAD, symptomatic bradycardia status post pacemaker placement, tobacco abuse who presents to the emergency department due to right-sided weakness and slurred speech. Although the initial symptoms resolved by the time EMS came, patient had several other episodes while she remained in the emergency department. Workup indicated left-sided high-grade carotid stenosis. Neurology as well as vascular surgery were consulted. Likely recurrent TIA High-grade left-sided carotid stenosis -Patient is currently on heparin drip. -Likely surgical intervention tomorrow on 05/28/2018. -Will start Lipitor 40mg QHS. Hx of CAD s/p stent Hx of Symptomatic bradycardia s/p Pacemaker Tobacco abuse - Patient will likely not be able to undergo MRI studies. - No acute cardiac issues. - Will start nicotine patch. Full code. Heparin drip. (1) Brain TIA Qualifiers: Transient cerebral ischemia type: carotid artery syndrome (hemispheric) Qualified Code(s): G45.1 - Carotid artery syndrome (hemispheric) (2) Carotid artery stenosis Qualifiers: Laterality: left Qualified Code(s): I65.22 - Occlusion and stenosis of left carotid artery
[2018-05-27 17:50] LABS: Amphetamine Screen,Urine Neg (Neg); Barbiturate Screen,Urine Neg (Neg); Cannabinoid Screen,Urine Neg (Neg); Cocaine Screen,Urine Neg (Neg)
[2018-05-27 17:51] LABS: Bilirubin,Urine Negative (Negative); Clarity,Urine Clear (Clear); Color,Urine Yellow (Yellw/Straw); Glucose,Urine (UA) Negative (Negative); Hyaline Casts,Urine 1 /lpf (0-3); Leukocyte Esterase,Urine Negative (Negative); Nitrite,Urine Negative (Negative); Specific Gravity,Urine 1.034 (1.002-1.035); Squamous Epithelial Cell,Urine <1 /hpf (0-5)
[2018-05-27 17:53] LABS: Opiate Screen,Urine Neg (Neg)
--- NOTE | 2018-05-27 18:27 | P.PNCA ---
- Note Subjective/Hospital Course: 57-year-old female with a crescendo TIAs and 90-95% stenosis of the left internal carotid artery for urgent carotid endarterectomy within 24 hours Will leave on heparin IV Discussed with Dr. Jim Thank you very much for your referral Full consult dictated J Objective: Vital Signs - 24 hr 05/27/18 12:24 05/27/18 12:28 05/27/18 13:07 Pulse Rate 60 60 Respiratory Rate 18 18 Blood Pressure 155/91 H Pulse Oximetry 93 L 95 99 05/27/18 14:02 05/27/18 16:29 Pulse Rate 57 L 66 Respiratory Rate 18 17 Blood Pressure 162/85 H 171/89 H Pulse Oximetry 100 Labs: Laboratory Results - last 12 hr 05/27/18 05/27/18 05/27/18 12:17 12:17 12:17 WBC 5.6 RBC 4.47 Hgb 14.6 POC Hgb (Calc) Hct 42.2 POC Hct MCV 94.5 MCH 32.7 MCHC 34.6 RDW 13.2 Plt Count 213 MPV 8.0 Neut % (Auto) 38.3 Lymph % (Auto) 48.9 H [place] % (Auto) 7.8 Eos % (Auto) 4.2 H Baso % (Auto) 0.8 Neut # (Auto) 2.1 Lymph # (Auto) 2.7 [place] # (Auto) 0.4 Eos # (Auto) 0.2 Baso # (Auto) 0.0 WBC Differential . Differential Comment Auto diff final PT 9.5 L INR 0.9 APTT 24.1 L POC Sodium Sodium 145 POC Potassium Potassium 4.3 POC Chloride Chloride 113 H Carbon Dioxide 20.1 L Anion Gap 12 POC BUN BUN 7 Creatinine 0.64 POC Creatinine Estimated GFR 80 L POC Glucose Random Glucose 80 Calcium 9.7 Total Bilirubin 0.3 AST 21 ALT 17 Alkaline Phosphatase 134 H Total Creatine Kinase 83 Troponin I Less than 0.02 L Total Protein 7.5 Albumin 3.6 Urine Color Urine Clarity Urine pH Ur Specific [place] Urine Protein Urine Glucose (UA) Urine Ketones Urine Occult Blood Urine Nitrate Urine Bilirubin Urine Urobilinogen Ur Leukocyte Esterase Urine RBC Urine WBC Ur Squamous Epith Cells Hyaline Casts Micro UA Comment Urine Culture Comments Urine Opiates Screen Ur Barbiturates Screen Ur Amphetamines Screen U Benzodiazepines Scrn Urine Cocaine Screen U Cannabinoids Screen Serum Alcohol 42 H Blood Type Antibody Screen 07/17/18 07/17/18 07/17/18 12:17 12:17 16:45 WBC RBC Hgb POC Hgb (Calc) 13.3 Hct POC Hct 39.0 MCV MCH MCHC RDW Plt Count MPV Neut % (Auto) Lymph % (Auto) [place] % (Auto) Eos % (Auto) Baso % (Auto) Neut # (Auto) Lymph # (Auto) [place] # (Auto) Eos # (Auto) Baso # (Auto) WBC Differential Differential Comment PT INR APTT POC Sodium 143 Sodium POC Potassium 4.1 Potassium POC Chloride 110 Chloride Carbon Dioxide Anion Gap POC BUN 5 BUN Creatinine POC Creatinine 0.6 Estimated GFR POC Glucose 83 Random Glucose Calcium Total Bilirubin AST ALT Alkaline Phosphatase Total Creatine Kinase Troponin I Total Protein Albumin Urine Color Urine Clarity Urine pH Ur Specific [place] Urine Protein Urine Glucose (UA) Urine Ketones Urine Occult Blood Urine Nitrate Urine Bilirubin Urine Urobilinogen Ur Leukocyte Esterase Urine RBC Urine WBC Ur Squamous Epith Cells Hyaline Casts Micro UA Comment Urine Culture Comments Urine Opiates Screen Neg Ur Barbiturates Screen Neg Ur Amphetamines Screen Neg U Benzodiazepines Scrn Neg Urine Cocaine Screen Neg U Cannabinoids Screen Neg Serum Alcohol Blood Type A Positive Antibody Screen Negative 05/27/18 16:45 WBC RBC Hgb POC Hgb (Calc) Hct POC Hct MCV MCH MCHC RDW Plt Count MPV Neut % (Auto) Lymph % (Auto) [place] % (Auto) Eos % (Auto) Baso % (Auto) Neut # (Auto) Lymph # (Auto) [place] # (Auto) Eos # (Auto) Baso # (Auto) WBC Differential Differential Comment PT INR APTT POC Sodium Sodium POC Potassium Potassium POC Chloride Chloride Carbon Dioxide Anion Gap POC BUN BUN Creatinine POC Creatinine Estimated GFR POC Glucose Random Glucose Calcium Total Bilirubin AST ALT Alkaline Phosphatase Total Creatine Kinase Troponin I Total Protein Albumin Urine Color Yellow Urine Clarity Clear Urine pH 5.0 Ur Specific [place] 1.034 Urine Protein Negative Urine Glucose (UA) Negative Urine Ketones Negative Urine Occult Blood Negative Urine Nitrate Negative Urine Bilirubin Negative Urine Urobilinogen Less than 2 Ur Leukocyte Esterase Negative Urine RBC Less than 1 Urine WBC Less than 1 Ur Squamous Epith Cells <1 Hyaline Casts 1 Micro UA Comment Culture not ind Urine Culture Comments Culture not ind Urine Opiates Screen Ur Barbiturates Screen Ur Amphetamines Screen U Benzodiazepines Scrn Urine Cocaine Screen U Cannabinoids Screen Serum Alcohol Blood Type Antibody Screen Result Diagrams: 05/27/18 12:17 05/27/18 12:17
[2018-05-27] MEDS: Sod Chloride 0.9% Inj 1,000 ML IV.CONT SCH (19:51)
[2018-05-27 20:17] LABS: Hematocrit 41.4 % (35.0-46.0); Mean Corpuscular HGB Conc 33.9 % (32.0-36.0); Mean Corpuscular Hemoglobin 31.9 pg (27.0-34.0); Mean Platelet Volume 8.4 fL (7.0-11.0); Platelet Count 189 th/mm3 (150-450); Red Cell Distribution Width 13.4 % (11.6-17.2); White Blood Count 7.1 th/mm3 (4.0-11.0)
[2018-05-28] MEDS: Temazepam 15 MG Capsule PO PRN (00:38)
[2018-05-28 02:07] LABS: Hematocrit 39.6 % (35.0-46.0); Hemoglobin 13.6 gm/dL (11.6-15.3); Mean Corpuscular HGB Conc 34.2 % (32.0-36.0); Mean Corpuscular Hemoglobin 31.9 pg (27.0-34.0); Mean Corpuscular Volume 93.3 fL (80.0-100.0); Mean Platelet Volume 8.1 fL (7.0-11.0); Platelet Count 177 th/mm3 (150-450); Red Blood Count 4.25 mil/mm3 (4.00-5.30); Red Cell Distribution Width 13.3 % (11.6-17.2); White Blood Count 7.4 th/mm3 (4.0-11.0)
--- NOTE | 2018-05-28 07:43 | MB ---
cc: Fannie Lyons MD DATE: 05/27/2018 AKA: [id number] CONSULTING PHYSICIAN: Dr. Lyons, Vascular Surgery REASON FOR CONSULTATION: Left internal carotid artery stenosis, crescendo TIAs. HISTORY OF PRESENT ILLNESS: This pleasant 59-year-old female presented to the hospital with sudden onset of dysarthria, aphasia, drooling and weakness of the right arm. The patient had several of these incidents this morning, which lasted for short periods of time and then she got better. She immediately transferred to our institution evaluated, treated as a stroke alert. Because the patient woke up with symptoms, she does not qualify for tPA because we do not know how long this has been going on. PAST MEDICAL HISTORY: Pacemaker placement, coronary artery disease, coronary stenting, PA. MEDICATIONS: The patient is on aspirin. SOCIAL HISTORY: She smokes a cigarette a pack of cigarettes a day and drinks about 2-3 times a week. PHYSICAL EXAMINATION: GENERAL: Reveals a pleasant female in no acute distress. HEENT: Normocephalic. No trauma to head. Pupils equal and reactive. Extraocular muscles intact. NECK: Bilateral carotid pulse and I really do not hear any bruits. CHEST: Bilateral breath sounds. HEART: Regular rhythm. The patient has mild COPD. ABDOMEN: Soft. Active bowel sounds. No rebound, no masses. NEUROLOGIC: The patient is awake and alert, however, she has slightly slurred speech and somewhat dysarthric, has a little trouble finding words. On my exam, she had bilateral equal strength and sensory. She is fully intact. IMPRESSION: The patient with a 95% left internal carotid artery stenosis on CTA. At this point, I recommend patient be placed on heparin and she will go into the operating room within the next 24 hours for urgent carotid endarterectomy. Thank you very much for the referral. CRITICAL CARE TIME: 42 minutes. MD FLORA Chambers/LOU , 06:21 PM , 06:40 PM DINA
--- NOTE | 2018-05-28 09:42 | P.PN ---
Subjective Interval history: Follow-up for crescendo TIAs and severe stenosis of the left internal carotid artery. Patient is currently resting in bed. No acute concerns. She slept well. No further TIA events overnight. No fever or chills. Physical Exam Vital signs: Vital Signs 05/27/18 12:24 05/27/18 12:28 05/27/18 13:07 Temperature Pulse Rate 60 60 Respiratory Rate 18 18 Blood Pressure 155/91 H Pulse Oximetry 93 L 95 99 05/27/18 14:02 05/27/18 16:29 05/27/18 20:00 Temperature 98.2 F Pulse Rate 57 L 66 60 Respiratory Rate 18 17 22 Blood Pressure 162/85 H 171/89 H 153/71 H Pulse Oximetry 100 99 05/27/18 22:30 05/28/18 00:00 05/28/18 04:00 Temperature 97.9 F 97.9 F Pulse Rate 61 60 Respiratory Rate 19 17 Blood Pressure 143/67 H 163/95 H Pulse Oximetry 98 Intake & Output 05/27/18 05/28/18 05/28/18 18:59 06:59 18:59 Intake Total 100 / 100 1134 / 1134 Output Total 500 / 500 Balance 100 / 100 634 / 634 Weight 77.1 kg 78 kg Intake: IV 1014 / 1014 Heparin/D5W 25,000 U/250 mL 25, 244 / 244 000 unit In 250 ml @ 1,200 UNITS/HR 12 mls/hr IV.CONT TITRATE PRN Rx#:[id number] NS Inj 1,000 ML @ 70 mls/hr IV. 770 / 770 CONT .[id number] [facility] Rx#:[id number] Oral 100 / 100 120 / 120 Output: Urine 500 / 500 Other: Date of Last Bowel Movement 05/27/18 Weight On Admission 77.1 kg Narrative: GENERAL: Alert, oriented 3, NAD. SKIN: Warm and dry. HEAD: Normocephalic. EYES: No scleral icterus. No injection or drainage. NECK: Supple, trachea midline. No JVD or lymphadenopathy. CARDIOVASCULAR: Regular rate and rhythm without murmurs, gallops, or rubs. RESPIRATORY: Breath sounds equal bilaterally. No accessory muscle use. GASTROINTESTINAL: Abdomen soft, non-tender, nondistended. MUSCULOSKELETAL: No cyanosis, or edema. BACK: Nontender without obvious deformity. No CVA tenderness. Neuro: CN II to XII grossly intact. No focal neurological deficits. Results - Labs CBC & Chem 7: 05/28/18 01:43 05/27/18 12:17 Laboratory Results - last 24 hr 05/27/18 05/27/18 05/27/18 12:17 12:17 12:17 WBC 5.6 RBC 4.47 Hgb 14.6 POC Hgb (Calc) Hct 42.2 POC Hct MCV 94.5 MCH 32.7 MCHC 34.6 RDW 13.2 Plt Count 213 MPV 8.0 Neut % (Auto) 38.3 Lymph % (Auto) 48.9 H [place] % (Auto) 7.8 Eos % (Auto) 4.2 H Baso % (Auto) 0.8 Neut # (Auto) 2.1 Lymph # (Auto) 2.7 [place] # (Auto) 0.4 Eos # (Auto) 0.2 Baso # (Auto) 0.0 WBC Differential . Differential Comment Auto diff final PT 9.5 L INR 0.9 APTT 24.1 L POC Sodium Sodium 145 POC Potassium Potassium 4.3 POC Chloride Chloride 113 H Carbon Dioxide 20.1 L Anion Gap 12 POC BUN BUN 7 Creatinine 0.64 POC Creatinine Estimated GFR 80 L POC Glucose Random Glucose 80 Calcium 9.7 Total Bilirubin 0.3 AST 21 ALT 17 Alkaline Phosphatase 134 H Total Creatine Kinase 83 Troponin I Less than 0.02 L Total Protein 7.5 Albumin 3.6 Urine Color Urine Clarity Urine pH Ur Specific [place] Urine Protein Urine Glucose (UA) Urine Ketones Urine Occult Blood Urine Nitrate Urine Bilirubin Urine Urobilinogen Ur Leukocyte Esterase Urine RBC Urine WBC Ur Squamous Epith Cells Hyaline Casts Micro UA Comment Urine Culture Comments Nasal Screen MRSA (PCR) Urine Opiates Screen Ur Barbiturates Screen Ur Amphetamines Screen U Benzodiazepines Scrn Urine Cocaine Screen U Cannabinoids Screen Serum Alcohol 42 H Blood Type Antibody Screen 05/27/18 05/27/18 05/27/18 12:17 12:17 16:45 WBC RBC Hgb POC Hgb (Calc) 13.3 Hct POC Hct 39.0 MCV MCH MCHC RDW Plt Count MPV Neut % (Auto) Lymph % (Auto) [place] % (Auto) Eos % (Auto) Baso % (Auto) Neut # (Auto) Lymph # (Auto) [place] # (Auto) Eos # (Auto) Baso # (Auto) WBC Differential Differential Comment PT INR APTT POC Sodium 143 Sodium POC Potassium 4.1 Potassium POC Chloride 110 Chloride Carbon Dioxide Anion Gap POC BUN 5 BUN Creatinine POC Creatinine 0.6 Estimated GFR POC Glucose 83 Random Glucose Calcium Total Bilirubin AST ALT Alkaline Phosphatase Total Creatine Kinase Troponin I Total Protein Albumin Urine Color Urine Clarity Urine pH Ur Specific [place] Urine Protein Urine Glucose (UA) Urine Ketones Urine Occult Blood Urine Nitrate Urine Bilirubin Urine Urobilinogen Ur Leukocyte Esterase Urine RBC Urine WBC Ur Squamous Epith Cells Hyaline Casts Micro UA Comment Urine Culture Comments Nasal Screen MRSA (PCR) Urine Opiates Screen Neg Ur Barbiturates Screen Neg Ur Amphetamines Screen Neg U Benzodiazepines Scrn Neg Urine Cocaine Screen Neg U Cannabinoids Screen Neg Serum Alcohol Blood Type A Positive Antibody Screen Negative 05/27/18 05/27/18 05/27/18 16:45 17:36 19:45 WBC 7.1 RBC 4.40 Hgb 14.0 POC Hgb (Calc) Hct 41.4 POC Hct MCV 94.0 MCH 31.9 MCHC 33.9 RDW 13.4 Plt Count 189 MPV 8.4 Neut % (Auto) Lymph % (Auto) [place] % (Auto) Eos % (Auto) Baso % (Auto) Neut # (Auto) Lymph # (Auto) [place] # (Auto) Eos # (Auto) Baso # (Auto) WBC Differential Differential Comment PT INR APTT POC Sodium Sodium POC Potassium Potassium POC Chloride Chloride Carbon Dioxide Anion Gap POC BUN BUN Creatinine POC Creatinine Estimated GFR POC Glucose Random Glucose Calcium Total Bilirubin AST ALT Alkaline Phosphatase Total Creatine Kinase Troponin I Total Protein Albumin Urine Color Yellow Urine Clarity Clear Urine pH 5.0 Ur Specific [place] 1.034 Urine Protein Negative Urine Glucose (UA) Negative Urine Ketones Negative Urine Occult Blood Negative Urine Nitrate Negative Urine Bilirubin Negative Urine Urobilinogen Less than 2 Ur Leukocyte Esterase Negative Urine RBC Less than 1 Urine WBC Less than 1 Ur Squamous Epith Cells <1 Hyaline Casts 1 Micro UA Comment Culture not ind Urine Culture Comments Culture not ind Nasal Screen MRSA (PCR) Not detected Urine Opiates Screen Ur Barbiturates Screen Ur Amphetamines Screen U Benzodiazepines Scrn Urine Cocaine Screen U Cannabinoids Screen Serum Alcohol Blood Type Antibody Screen 05/27/18 05/27/18 05/28/18 19:45 20:53 01:43 WBC 7.4 RBC 4.25 Hgb 13.6 POC Hgb (Calc) Hct 39.6 POC Hct MCV 93.3 MCH 31.9 MCHC 34.2 RDW 13.3 Plt Count 177 MPV 8.1 Neut % (Auto) Lymph % (Auto) [place] % (Auto) Eos % (Auto) Baso % (Auto) Neut # (Auto) Lymph # (Auto) [place] # (Auto) Eos # (Auto) Baso # (Auto) WBC Differential Differential Comment PT INR APTT 45.5 H D POC Sodium Sodium POC Potassium Potassium POC Chloride Chloride Carbon Dioxide Anion Gap POC BUN BUN Creatinine POC Creatinine Estimated GFR POC Glucose Random Glucose Calcium Total Bilirubin AST ALT Alkaline Phosphatase Total Creatine Kinase Troponin I Less than 0.02 L Total Protein Albumin Urine Color Urine Clarity Urine pH Ur Specific [place] Urine Protein Urine Glucose (UA) Urine Ketones Urine Occult Blood Urine Nitrate Urine Bilirubin Urine Urobilinogen Ur Leukocyte Esterase Urine RBC Urine WBC Ur Squamous Epith Cells Hyaline Casts Micro UA Comment Urine Culture Comments Nasal Screen MRSA (PCR) Urine Opiates Screen Ur Barbiturates Screen Ur Amphetamines Screen U Benzodiazepines Scrn Urine Cocaine Screen U Cannabinoids Screen Serum Alcohol Blood Type Antibody Screen 05/28/18 01:43 WBC RBC Hgb POC Hgb (Calc) Hct POC Hct MCV MCH MCHC RDW Plt Count MPV Neut % (Auto) Lymph % (Auto) [place] % (Auto) Eos % (Auto) Baso % (Auto) Neut # (Auto) Lymph # (Auto) [place] # (Auto) Eos # (Auto) Baso # (Auto) WBC Differential Differential Comment PT INR APTT 59.5 H D POC Sodium Sodium POC Potassium Potassium POC Chloride Chloride Carbon Dioxide Anion Gap POC BUN BUN Creatinine POC Creatinine Estimated GFR POC Glucose Random Glucose Calcium Total Bilirubin AST ALT Alkaline Phosphatase Total Creatine Kinase Troponin I Total Protein Albumin Urine Color Urine Clarity Urine pH Ur Specific [place] Urine Protein Urine Glucose (UA) Urine Ketones Urine Occult Blood Urine Nitrate Urine Bilirubin Urine Urobilinogen Ur Leukocyte Esterase Urine RBC Urine WBC Ur Squamous Epith Cells Hyaline Casts Micro UA Comment Urine Culture Comments Nasal Screen MRSA (PCR) Urine Opiates Screen Ur Barbiturates Screen Ur Amphetamines Screen U Benzodiazepines Scrn Urine Cocaine Screen U Cannabinoids Screen Serum Alcohol Blood Type Antibody Screen - Imaging Impressions Chest X-Ray 05/27/18 12:24 CONCLUSION: No acute cardiopulmonary findings. Head CT 05/27/18 12:24 CONCLUSION: 1. Prominent nonspecific white matter changes left frontal periventricular white matter. 2. Otherwise unremarkable CT brain. Head CTA 05/27/18 12:24 CONCLUSION: High-grade stenosis at the origin of the left internal carotid artery and the lower brule of [place] appears intact except for chronic atelectatic changes. Neck CTA 05/27/18 12:24 CONCLUSION: 1. Left carotid: Extensive plaquing at the bifurcation with both hard and soft plaque present resulting in stenosis estimated to be in the range of 90% or greater by NASCET criteria. 2. Right carotid: Mild plaquing at the bifurcation there is both hard and soft plaque present. This results in a mild degree of stenosis in the origin of the right internal carotid. Assessment and Plan - Assessment (1) Brain TIA Code(s): G45.9 - Transient cerebral ischemic attack, unspecified Status: Acute (2) Carotid artery stenosis Code(s): I65.29 - Occlusion and stenosis of unspecified carotid artery Status : Acute - Plan Ms. Herminia Small is a pleasant 57-year-old female with a history of CAD, symptomatic bradycardia status post pacemaker placement, tobacco abuse who presents to the emergency department due to right-sided weakness and slurred speech. Although the initial symptoms resolved by the time EMS came, patient had several other episodes while she remained in the emergency department. Workup indicated left-sided high-grade carotid stenosis. Neurology as well as vascular surgery were consulted. Ariana TIAs High-grade left-sided carotid stenosis -Patient is currently on heparin drip. -Likely surgical intervention tomorrow on 05/28/2018. -Lipitor 40mg QHS. Hx of CAD s/p stent Hx of Symptomatic bradycardia s/p Pacemaker Tobacco abuse - Patient will likely not be able to undergo MRI studies. - No acute cardiac issues. - Continue nicotine patch. Hypertension - Continue Captopril 25mg BID. Clonidine PRN. Chronic Back Pain - exacerbated by lying in bed, this is likely causing HTN to be elevated. Will start low dose pain meds. Full code. Heparin drip. (1) Brain TIA Qualifiers: Transient cerebral ischemia type: carotid artery syndrome (hemispheric) Qualified Code(s): G45.1 - Carotid artery syndrome (hemispheric) (2) Carotid artery stenosis Qualifiers: Laterality: left Qualified Code(s): I65.22 - Occlusion and stenosis of left carotid artery
[2018-05-28] MEDS: Sod Chloride 0.9% Inj 1,000 ML IV.CONT SCH (10:44)
[2018-05-28] MEDS: Heparin Drip 25,000 UNIT/250 ML BAG IV.CONT PRN (10:46)
[2018-05-28] MEDS ORDERED: Protamine Sulfate Inj 50 MG/5 ML Vial ONE (11:28)
[2018-05-28] MEDS ORDERED: Heparin - SQ 10,000 UNITS/ML Vial SQ ONE ×2 (11:28→11:29)
[2018-05-28] MEDS ORDERED: Heparin 10,000 UNITS/10 ML Vial (for IV use) ONE (11:28)
[2018-05-28] MEDS: ceFAZolin 2 GM Premix Inj 2 GM/50 ML PIGGYBACK IV.SIG ONE (13:13)
--- NOTE | 2018-05-28 15:01 | ECG ---
Date Performed: 05/27/2018 Time Performed: 18:31:21 PTAGE: 57 years EKG: ELECTRONIC ATRIAL PACEMAKER NONSPECIFIC ST ABN ABNORMAL ECG NO PREVIOUS TRACING DOCTOR: Elijah Burger Interpretating Date/Time 05/28/2018 14:59:43
[2018-05-28] MEDS ORDERED: fentaNYL Citrate Inj 100 MCG/2 ML Ampul ONE ×2 (15:26)
[2018-05-28] MEDS ORDERED: Normosol-R pH 7.4 Inj 1,000 ML IV.CONT ONE (15:27)
[2018-05-28] MEDS ORDERED: Lidocaine PF 1% Inj 5 ML Syringe INFILTRATN ONE (15:27)
[2018-05-28] MEDS ORDERED: Sodium Chlor 0.9% Inj 250 ML IV.SIG ONE (15:27)
[2018-05-28] MEDS ORDERED: Sodium Chlor 0.9% Inj 500 ML IV.SIG ONE (15:27)
[2018-05-28] MEDS ORDERED: Glycopyrrolate Inj 1 MG/5 ML Syringe IV.PUSH ONE (15:27)
[2018-05-28] MEDS ORDERED: Neostigmine Inj 5 MG/5 ML Syringe IV.PUSH ONE (15:27)
[2018-05-28] MEDS ORDERED: Phenylephrine/NS 1000 MCG/10ML Syringe IV.PUSH ONE (15:27)
[2018-05-28] MEDS ORDERED: *morphine SULFATE 4 MG/ML PERIprocedure ONLY ONE (15:36)
--- NOTE | 2018-05-28 17:11 | MP ---
cc: Fannie Lyons MD, Slobodan MD DATE OF OPERATION: 05/28/2018 PREOPERATIVE DIAGNOSIS: Left internal carotid artery critical stenosis, crescendo transient ischemic attacks. POSTOPERATIVE DIAGNOSIS:. Left internal carotid artery critical stenosis, crescendo transient ischemic attacks. OPERATIVE PROCEDURE: Left carotid endarterectomy and patch angioplasty. SURGEON: Fannie Lyons MD. ANESTHESIA: General. ESTIMATED BLOOD LOSS: 150 mL INDICATIONS: The patient was prepped and draped in usual fashion. The left peristernocleidomastoid incision made, deepened down through the platysma to the level of the carotid sheath. The common carotid, internal and external carotid arteries are isolated with careful sharp and blunt dissection. Hypoglossal nerve is carefully identified and preserved. The facial vein is ligated and divided. Umbilical tape with a Rumel tourniquet is placed under each vessel respectively and then the patient is given 7000 units of heparin and retractors are positioned including the iron commissioner of internal revenue upper arm. The DeBakey clamp is applied to the common carotid artery and bulldog to internal carotid artery. The vessel is opened longitudinally using Manuel scissors. Immediately Dragoon shunt is placed and blood flow reestablished and the tourniquet cinched down. The patient has enormous plaque in the proximal internal carotid artery, which is nearly completely occluding the vessel and corresponds to the CTA findings. This one extends for about 2 cm in length in the internal carotid artery and courses into the common carotid artery. It is a firm plaque with underlying cheesy degenerated dark material that is semi-liquefied. Very carefully the plaque is dissected in the media plane using freer dissector and removed. The vessel is washed out with heparinized saline. Small debris is removed with forceps and wecksels. The intima is checked proximally and distally and it is nicely cut and there is a clean transition. An 8 mm bovine patch is now placed and sewn in with running 5-0 Prolene. Prior to completion of the arterial repair, the [place] shunt is removed, clamp is applied and then closure completed. Blood flow is then reestablished in usual order and fashion preventing embolization into the internal carotid artery. Area irrigated with copious amounts of saline and some Surgicel placed over the vessel. A 7 flat NATHALIE placed and incision closed with a 2-0 Vicryl in layers and 4-0 Monocryl. Benzoin, Steri-Strips applied. The patient is taken out of the operating room in stable condition, neurologically fully intact. MD FLORA Chambers/ , 04:25 PM , 05:10 PM DINA
--- NOTE | 2018-05-28 17:27 | P.PNNEU ---
Subjective Subjective Comments: s/p left carotid endarterectomy. denies any neurologic sx at present time Active Medications: Active Medications Al Hydroxide/Mg Hydroxide (Milk Of Magnesia Liq) 30 ml PO Q12H PRN PRN Reason: Mild Constipation Atorvastatin Calcium (Lipitor) 40 mg PO HS ON LICENSE OF [facility] Bisacodyl (Dulcolax Supp) 10 mg RECTAL DAILY PRN PRN Reason: SEVERE CONSITIPATION Captopril (Capoten) 25 mg PO BID ON LICENSE OF [facility] Last Admin: 05/28/18 08:35 Dose: 25 mg Clonidine HCl (Catapres) 0.1 mg PO Q6H PRN PRN Reason: BP > 180 systolic Heparin Sodium/Dextrose (Heparin/D5w 25,000 U/250 Ml) 25,000 unit in 250 mls @ 12 mls/hr IV.CONT TITRATE PRN; Protocol PRN Reason: Per Protocol Last Titration: 05/28/18 12:25 Dose: Infused Lactulose (Lactulose Liq) 30 ml PO DAILY PRN PRN Reason: SEVERE CONSITIPATION Miscellaneous Information ([facility]) 1 each OTHER Q15M ON LICENSE OF [facility] Last Admin: 05/28/18 00:33 Dose: 1 each Oxycodone/Acetaminophen (Percocet 7.5/325 Mg) 1 tab PO Q6H PRN PRN Reason: PAIN SCALE 6 TO 10 Last Admin: 05/28/18 09:52 Dose: 1 tab Sennosides (Senokot) 17.2 mg PO Q12H PRN PRN Reason: Moderate Constipation Sodium Chloride (Ns Flush) 2 ml IV.FLUSH PRN PRN PRN Reason: FLUSH AFTER USING IV ACCESS Temazepam (Restoril) 15 mg PO HS PRN PRN Reason: INSOMNIA Last Admin: 05/28/18 00:38 Dose: 15 mg Allergies/Adverse Reactions: Allergies Allergy/AdvReac Type Severity Reaction Status Date / Time dopamine Allergy Mild palpitation Verified 05/27/18 12:24 s Physical Exam Vital signs: Vital Signs 05/27/18 20:00 05/27/18 22:30 05/28/18 00:00 Temperature 98.2 F 97.9 F Pulse Rate 60 61 Respiratory Rate 22 19 Blood Pressure 153/71 H 143/67 H Pulse Oximetry 99 98 05/28/18 04:00 05/28/18 10:43 05/28/18 11:45 Temperature 97.9 F Pulse Rate 60 64 Respiratory Rate 17 14 Blood Pressure 163/95 H 177/95 H Pulse Oximetry 97 98 05/28/18 15:15 Temperature 98.4 F Pulse Rate 88 Respiratory Rate 17 Blood Pressure 144/89 H Pulse Oximetry 95 Intake & Output 05/27/18 05/28/18 05/28/18 18:59 06:59 18:59 Intake Total 100 / 100 1140 / 1140 2145 / 2145 Output Total 500 / 500 500 / 500 Balance 100 / 100 640 / 640 1645 / 1645 Weight 77.1 kg 78 kg Intake: IV 1020 / 1020 545 / 545 Heparin/D5W 25,000 U/250 mL 25, 250 / 250 265 / 265 000 unit In 250 ml @ 1,200 UNITS/HR 12 mls/hr IV.CONT TITRATE PRN Rx#:[id number] NS Inj 1,000 ML @ 70 mls/hr IV. 770 / 770 230 / 230 CONT .[id number] [facility] Rx#:[id number] Ancef 2 GM Premix Inj 2 gm In 50 / 50 50 ml @ 0 mls/hr IV.SIG .ST[facility]- [facility] Rx#:[id number] Oral 100 / 100 120 / 120 Anesthesia Amount 1600 / 1600 Output: Urine 500 / 500 Estimated Blood Loss 100 / 100 Urine Amount (Catheter) 400 / 400 Indwelling Urethral Catheter 400 / 400 Other: Date of Last Bowel Movement 05/27/18 Weight On Admission 77.1 kg - Routine Neurological Exam alert, speech is completely normal CN intact motor 5/5 BUE and BLE - Urinary Catheter Management Indwelling Urethral Catheter Cath placed during this visit: yes Reason for continuing: Other continuation reason Insertion date: 05/28/18 Insertion time: 12:58 Objective Laboratory Results - last 24 hr 05/27/18 05/27/18 05/27/18 16:45 16:45 17:36 WBC RBC Hgb Hct MCV MCH MCHC RDW Plt Count MPV APTT Troponin I Urine Color Yellow Urine Clarity Clear Urine pH 5.0 Ur Specific [place] 1.034 Urine Protein Negative Urine Glucose (UA) Negative Urine Ketones Negative Urine Occult Blood Negative Urine Nitrate Negative Urine Bilirubin Negative Urine Urobilinogen Less than 2 Ur Leukocyte Esterase Negative Urine RBC Less than 1 Urine WBC Less than 1 Ur Squamous Epith Cells <1 Hyaline Casts 1 Micro UA Comment Culture not ind Urine Culture Comments Culture not ind Nasal Screen MRSA (PCR) Not detected Urine Opiates Screen Neg Ur Barbiturates Screen Neg Ur Amphetamines Screen Neg U Benzodiazepines Scrn Neg Urine Cocaine Screen Neg U Cannabinoids Screen Neg 05/27/18 05/27/18 05/27/18 19:45 19:45 20:53 WBC 7.1 RBC 4.40 Hgb 14.0 Hct 41.4 MCV 94.0 MCH 31.9 MCHC 33.9 RDW 13.4 Plt Count 189 MPV 8.4 APTT 45.5 H D Troponin I Less than 0.02 L Urine Color Urine Clarity Urine pH Ur Specific [place] Urine Protein Urine Glucose (UA) Urine Ketones Urine Occult Blood Urine Nitrate Urine Bilirubin Urine Urobilinogen Ur Leukocyte Esterase Urine RBC Urine WBC Ur Squamous Epith Cells Hyaline Casts Micro UA Comment Urine Culture Comments Nasal Screen MRSA (PCR) Urine Opiates Screen Ur Barbiturates Screen Ur Amphetamines Screen U Benzodiazepines Scrn Urine Cocaine Screen U Cannabinoids Screen 05/28/18 05/28/18 01:43 01:43 WBC 7.4 RBC 4.25 Hgb 13.6 Hct 39.6 MCV 93.3 MCH 31.9 MCHC 34.2 RDW 13.3 Plt Count 177 MPV 8.1 APTT 59.5 H D Troponin I Urine Color Urine Clarity Urine pH Ur Specific [place] Urine Protein Urine Glucose (UA) Urine Ketones Urine Occult Blood Urine Nitrate Urine Bilirubin Urine Urobilinogen Ur Leukocyte Esterase Urine RBC Urine WBC Ur Squamous Epith Cells Hyaline Casts Micro UA Comment Urine Culture Comments Nasal Screen MRSA (PCR) Urine Opiates Screen Ur Barbiturates Screen Ur Amphetamines Screen U Benzodiazepines Scrn Urine Cocaine Screen U Cannabinoids Screen Review/Management - Diagnosis (1) TIA involving carotid artery Code(s): G45.1 - Carotid artery syndrome (hemispheric) Status: Acute Current Visit: Yes - Review/Management Plan: pt doing very well s/p left carotid endarterectomy. Further orders per Dr Lyons
[2018-05-29] MEDS: Temazepam 15 MG Capsule PO PRN (00:25)
[2018-05-29] MEDS ORDERED: Morphine Inj 4 MG/ML Vial IV.PUSH PRN (05:57)
[2018-05-29 07:39] LABS: Hematocrit 41.1 % (35.0-46.0); Hemoglobin 14.1 gm/dL (11.6-15.3); Mean Corpuscular HGB Conc 34.3 % (32.0-36.0); Mean Corpuscular Hemoglobin 32.8 pg (27.0-34.0); Mean Corpuscular Volume 95.6 fL (80.0-100.0); Mean Platelet Volume 8.2 fL (7.0-11.0); Platelet Count 190 th/mm3 (150-450); Red Cell Distribution Width 13.4 % (11.6-17.2); White Blood Count 9.4 th/mm3 (4.0-11.0)
[2018-05-29 07:54] LABS: Chol/HDL Ratio 4.13 Ratio
[2018-05-29] MEDS ORDERED: Albumin Human 5% Inj 500 ML IV.SIG ONE (13:00)
[2018-05-29] MEDS ORDERED: Sod Chloride 0.9% Inj 1,000 ML IV.SIG ONE (14:00)
--- NOTE | 2018-05-29 14:07 | P.PN ---
Subjective Interval history: Follow-up for crescendo TIAs and severe stenosis of the left internal carotid artery. Patient is sitting in her chair. Family is concerned about her facial droops and slurry speech. Her BP is low with systolic around 86 and MAP of 65. She denies any CP, SOB, fever, chills. However, her speech does sound slurred and she has mild facial droop. Physical Exam Vital signs: Vital Signs 05/28/18 15:15 05/28/18 15:30 05/28/18 15:45 Temperature 98.4 F Pulse Rate 88 81 69 Respiratory Rate 17 Blood Pressure 144/89 H 128/73 122/68 Pulse Oximetry 95 95 95 05/28/18 16:00 05/28/18 16:15 05/28/18 16:25 Temperature 98.4 F Pulse Rate 71 71 64 Respiratory Rate 17 Blood Pressure 129/78 136/78 120/80 Pulse Oximetry 95 94 L 95 05/28/18 20:00 05/28/18 20:26 05/29/18 00:00 Temperature 97.6 F 97.9 F Pulse Rate 68 62 Respiratory Rate 18 11 L Blood Pressure 136/83 107/68 Pulse Oximetry 94 L 97 98 05/29/18 04:00 05/29/18 05:01 05/29/18 08:00 Temperature 97.8 F 98 F Pulse Rate 62 60 Respiratory Rate 12 7 L 15 Blood Pressure 186/95 H 132/77 Pulse Oximetry 97 96 05/29/18 10:00 05/29/18 12:00 Temperature 98.2 F Pulse Rate 64 60 Respiratory Rate 12 Blood Pressure 86/53 L Pulse Oximetry 96 Intake & Output 05/28/18 05/29/18 05/29/18 18:59 06:59 18:59 Intake Total 2805 / 2805 240 / 240 Output Total 1400 / 1400 1080 / 1080 Balance 1405 / 1405 -840 / -840 Weight 79.9 kg Intake: IV 545 / 545 Heparin/D5W 25,000 U/250 mL 25, 265 / 265 000 unit In 250 ml @ 1,200 UNITS/HR 12 mls/hr IV.CONT TITRATE PRN Rx#:[id number] NS Inj 1,000 ML @ 70 mls/hr IV. 230 / 230 CONT .[id number] RIC Rx#:[id number] Ancef 2 GM Premix Inj 2 gm In 50 / 50 50 ml @ 0 mls/hr IV.SIG .[facility] ONE Rx#:[id number] Oral 660 / 660 240 / 240 Anesthesia Amount 1600 / 1600 Output: Urine 800 / 800 950 / 950 Estimated Blood Loss 200 / 200 100 / 100 Urine Amount (Catheter) 400 / 400 Indwelling Urethral Catheter 400 / 400 Wound Drainage 30 / 30 Left Neck 30 / 30 Other: Date of Last Bowel Movement 05/28/18 05/28/18 05/28/18 # Bowel Movements 1 0 Narrative: GENERAL: Alert, oriented 3, NAD. SKIN: Warm and dry. HEAD: Normocephalic. EYES: No scleral icterus. No injection or drainage. NECK: Supple, trachea midline. No JVD or lymphadenopathy. CARDIOVASCULAR: Regular rate and rhythm without murmurs, gallops, or rubs. RESPIRATORY: Breath sounds equal bilaterally. No accessory muscle use. GASTROINTESTINAL: Abdomen soft, non-tender, nondistended. MUSCULOSKELETAL: No cyanosis, or edema. BACK: Nontender without obvious deformity. No CVA tenderness. Neuro: CN II to XII grossly intact. Mild facial droop noted, speech is somewhat slurred. - Urinary Catheter Management Indwelling Urethral Catheter Cath placed during this visit: yes, but has since been removed by the nurse Reason for continuing: Decision to DC catheter Insertion date: 05/28/18 Insertion time: 12:58 Removal date: 05/29/18 Removal time: 09:00 Results - Labs CBC & Chem 7: 05/29/18 06:34 05/27/18 12:17 Laboratory Results - last 24 hr 05/29/18 05/29/18 06:34 06:34 WBC 9.4 RBC 4.30 Hgb 14.1 Hct 41.1 MCV 95.6 MCH 32.8 MCHC 34.3 RDW 13.4 Plt Count 190 MPV 8.2 Triglycerides 90 Cholesterol 310 H LDL Cholesterol, Calc 217 H HDL Cholesterol 75.0 H Cholesterol/HDL Ratio 4.13 - Procedures 05/28/2018 Left carotid endarterectomy and patch angioplasty. Assessment and Plan - Assessment (1) Brain TIA Code(s): G45.9 - Transient cerebral ischemic attack, unspecified Status: Acute (2) Carotid artery stenosis Code(s): I65.29 - Occlusion and stenosis of unspecified carotid artery Status : Acute - Plan Ms. Herminia Small is a pleasant 57-year-old female with a history of CAD, symptomatic bradycardia status post pacemaker placement, tobacco abuse who presents to the emergency department due to right-sided weakness and slurred speech. Although the initial symptoms resolved by the time EMS came, patient had several other episodes while she remained in the emergency department. Workup indicated left-sided high-grade carotid stenosis. Neurology as well as vascular surgery were consulted. Crescendo TIAs High-grade left-sided carotid stenosis -Left carotid endarterectomy and patch angioplasty 05/28/2018. -Lipitor 40mg QHS. Continue Plavix 75mg Qday. Hx of CAD s/p stent Hx of Symptomatic bradycardia s/p Pacemaker Tobacco abuse - No acute cardiac issues. - Continue nicotine patch. Hypotension - Per Dr. Boyer, patient is receiving albumin infusion. BP improved after albumin and patient will get 1L NS bolus as well. - Hold all anti-hypertensives. Probable dysphagia - will consult Speech. Full code. Ambulation. Pharmacological DVT prophylaxis If okay with Vascular surgery. (1) Brain TIA Qualifiers: Transient cerebral ischemia type: carotid artery syndrome (hemispheric) Qualified Code(s): G45.1 - Carotid artery syndrome (hemispheric) (2) Carotid artery stenosis Qualifiers: Laterality: left Qualified Code(s): I65.22 - Occlusion and stenosis of left carotid artery
[2018-05-29] MEDS: Norepinephrine Inj 4 MG in Sodium Chlor 0.9% Inj 246 ML IV.SIG PRN (14:49)
--- NOTE | 2018-05-29 16:05 | P.PNCA ---
- Note Subjective/Hospital Course: 57-year-old female with a crescendo TIAs and 90-95% stenosis of the left internal carotid artery for urgent carotid endarterectomy within 24 hours Will leave on heparin IV Discussed with Dr. Jim Thank you very much for your referral Full consult dictated J 05/29/2018 Patient awake alert oriented status post left carotid endarterectomy and patch angioplasty Incision clean and dry Neurologically fully intact throughout the night This morning patient started slurring speech slightly although no other neurologic symptoms at that time it was noted that patient was given. Antihypertensives and pain medication with a very short period of time and systolic blood pressure dropped to 92 mmHg which is very low for this patient. After surgery of the sorts patients require higher systolic blood pressure to maintain perfusion and as soon as the pressure was raised, patient's symptoms resolved Therefore all antihypertensives have been removed and patient was placed on small dose Levophed DC NATHALIE DC A-line DC Birch We will give patient another day in the ICU due to blood pressure issues and then transferred to the floor and discharge Objective: Vital Signs - 24 hr 05/28/18 16:15 05/28/18 16:25 05/28/18 20:00 Temperature 98.4 F 97.6 F Pulse Rate 71 64 68 Respiratory Rate 17 18 Blood Pressure 136/78 120/80 136/83 Pulse Oximetry 94 L 95 94 L 05/28/18 20:26 05/29/18 00:00 05/29/18 04:00 Temperature 97.9 F 97.8 F Pulse Rate 62 62 Respiratory Rate 11 L 12 Blood Pressure 107/68 186/95 H Pulse Oximetry 97 98 97 05/29/18 05:01 05/29/18 08:00 05/29/18 10:00 Temperature 98 F Pulse Rate 60 64 Respiratory Rate 7 L 15 Blood Pressure 132/77 Pulse Oximetry 96 05/29/18 12:00 Temperature 98.2 F Pulse Rate 60 Respiratory Rate 12 Blood Pressure 86/53 L Pulse Oximetry 96 Labs: Laboratory Results - last 12 hr 05/29/18 05/29/18 06:34 06:34 WBC 9.4 RBC 4.30 Hgb 14.1 Hct 41.1 MCV 95.6 MCH 32.8 MCHC 34.3 RDW 13.4 Plt Count 190 MPV 8.2 Triglycerides 90 Cholesterol 310 H LDL Cholesterol, Calc 217 H HDL Cholesterol 75.0 H Cholesterol/HDL Ratio 4.13 Result Diagrams: 05/29/18 06:34 05/27/18 12:17
[2018-05-30] MEDS: Norepinephrine Inj 4 MG in Sodium Chlor 0.9% Inj 246 ML IV.SIG PRN (05:29)
--- NOTE | 2018-05-30 12:24 | P.PNCA ---
- Note Subjective/Hospital Course: 57-year-old female with a crescendo TIAs and 90-95% stenosis of the left internal carotid artery for urgent carotid endarterectomy within 24 hours Will leave on heparin IV Discussed with Dr. Jim Thank you very much for your referral Full consult dictated J 05/29/2018 Patient awake alert oriented status post left carotid endarterectomy and patch angioplasty Incision clean and dry Neurologically fully intact throughout the night This morning patient started slurring speech slightly although no other neurologic symptoms at that time it was noted that patient was given. Antihypertensives and pain medication with a very short period of time and systolic blood pressure dropped to 92 mmHg which is very low for this patient. After surgery of the sorts patients require higher systolic blood pressure to maintain perfusion and as soon as the pressure was raised, patient's symptoms resolved Therefore all antihypertensives have been removed and patient was placed on small dose Levophed DC NATHALIE DC A-line DC Birch We will give patient another day in the ICU due to blood pressure issues and then transferred to the floor and discharge 05/30/2018 Incision clean and dry patient is awake alert and oriented Speech pattern has returned to normal Motorically equal bilateral strength It appears that low blood pressure is immediately associated with hypoperfusion and dysarthria and therefore patient requires higher blood pressure levels. On the other hand patients blood pressure is very hard to control and his volatile either being around 190 mm systolic or dropping very easily to be low 100 mmHg with very small manipulations with antihypertensives Small dose of Levophed has been removed We will transfer to floor today Patient is not to get any antihypertensives unless approved by me due to very volatile nature of her blood pressure and sudden drops and rises in the same. After carotid endarterectomy patients do well with higher blood pressure Patient will likely be able to go home tomorrow from vascular surgery point Repeat CT scan of the brain reveals a small area of diffusion changes consistent with either ischemic stroke, or more likely reperfusion injury after left carotid endarterectomy. Left carotid artery is widely patent Objective: Vital Signs - 24 hr 05/29/18 14:00 05/29/18 14:05 05/29/18 16:00 Temperature 98.2 F Pulse Rate 64 60 Respiratory Rate 18 Blood Pressure 125/77 Pulse Oximetry 99 98 05/29/18 18:00 05/29/18 19:19 05/29/18 20:00 Temperature 98 F Pulse Rate 62 60 Respiratory Rate 18 Blood Pressure 159/83 H Pulse Oximetry 98 98 05/29/18 20:42 05/30/18 00:00 05/30/18 04:00 Temperature 97.6 F 98.1 F Pulse Rate 60 62 Respiratory Rate 13 13 18 Blood Pressure 130/86 153/81 H Pulse Oximetry 98 98 05/30/18 07:41 05/30/18 08:00 05/30/18 10:00 Temperature 98.1 F Pulse Rate 60 60 Respiratory Rate 16 Blood Pressure 182/88 H Pulse Oximetry 98 99 05/30/18 10:30 Temperature Pulse Rate Respiratory Rate 20 Blood Pressure Pulse Oximetry Result Diagrams: 05/29/18 06:34 05/27/18 12:17
--- NOTE | 2018-05-30 17:08 | P.PNNEU ---
Subjective Subjective Comments: Pt has mild dysarthria right sided strength improving Active Medications: Active Medications Al Hydroxide/Mg Hydroxide (Milk Of Magnesia Liq) 30 ml PO Q12H PRN PRN Reason: Mild Constipation Atorvastatin Calcium (Lipitor) 40 mg PO HS [facility] Last Admin: 05/29/18 20:42 Dose: 40 mg Bisacodyl (Dulcolax Supp) 10 mg RECTAL DAILY PRN PRN Reason: SEVERE CONSITIPATION Clopidogrel Bisulfate (Plavix) 75 mg PO DAILY [facility] Last Admin: 05/30/18 08:00 Dose: 75 mg Lactulose (Lactulose Liq) 30 ml PO DAILY PRN PRN Reason: SEVERE CONSITIPATION Oxycodone/Acetaminophen (Percocet 5/325 Mg) 1 tab PO Q4H PRN PRN Reason: PAIN SCALE 6 TO 10 Last Admin: 05/30/18 15:37 Dose: 1 tab Sennosides (Senokot) 17.2 mg PO Q12H PRN PRN Reason: Moderate Constipation Sodium Chloride (Ns Flush) 2 ml IV.FLUSH PRN PRN PRN Reason: FLUSH AFTER USING IV ACCESS Temazepam (Restoril) 15 mg PO HS PRN PRN Reason: INSOMNIA Last Admin: 05/29/18 00:25 Dose: 15 mg Terbutaline Sulfate (Brethine Inj) 1 mg SQ UNSCH PRN PRN Reason: For Extravasation Allergies/Adverse Reactions: Allergies Allergy/AdvReac Type Severity Reaction Status Date / Time dopamine Allergy Mild palpitation Verified 05/27/18 12:24 s Physical Exam Vital signs: Vital Signs 05/29/18 18:00 05/29/18 19:19 05/29/18 20:00 Temperature 98 F Pulse Rate 62 60 Respiratory Rate 18 Blood Pressure 159/83 H Pulse Oximetry 98 98 05/29/18 20:42 05/30/18 00:00 05/30/18 04:00 Temperature 97.6 F 98.1 F Pulse Rate 60 62 Respiratory Rate 13 13 18 Blood Pressure 130/86 153/81 H Pulse Oximetry 98 98 05/30/18 07:41 05/30/18 08:00 05/30/18 10:00 Temperature 98.1 F Pulse Rate 60 60 Respiratory Rate 16 Blood Pressure 182/88 H Pulse Oximetry 98 99 05/30/18 10:30 05/30/18 12:00 Temperature 98 F Pulse Rate 62 Respiratory Rate 20 14 Blood Pressure 183/78 H Pulse Oximetry 96 Intake & Output 05/29/18 05/30/18 05/30/18 18:59 06:59 18:59 Intake Total 1979 / 1979 450 / 450 75 / 75 Output Total 750 / 750 Balance 1230 / 1230 450 / 450 75 / 75 Weight 79.3 kg Intake: IV 1500 / 1500 250 / 250 75 / 75 Alburx 5% Inj 500 ML @ As 500 / 500 Directed IV.SIG ONCE ONE Rx#: [id number] Levophed Inj 4 MG In NS Inj 246 250 / 250 75 / 75 ML @ 2 MCG/MIN 7.5 mls/hr IV. SIG TITRATE PRN Rx#:[id number] NS Inj 1,000 ML @ Wide Open IV. 1000 / 1000 SIG BOLUS ONE Rx#:[id number] Oral 480 / 480 200 / 200 Output: Urine 400 / 400 Urine Amount (Catheter) 350 / 350 Indwelling Urethral Catheter 350 / 350 Other: # Voids 1 4 Date of Last Bowel Movement 05/28/18 05/28/18 05/28/18 # Bowel Movements 0 0 - Routine Neurological Exam alert, speech is dyarthric. follow commands CN intact MOTOR 5-/5 RUE. 5/5 LUE - Urinary Catheter Management Indwelling Urethral Catheter Cath placed during this visit: yes, but has since been removed by the nurse Reason for continuing: Decision to DC catheter Insertion date: 05/28/18 Insertion time: 12:58 Removal date: 05/29/18 Removal time: 09:00 Review/Management - Diagnosis (1) TIA involving carotid artery Code(s): G45.1 - Carotid artery syndrome (hemispheric) Status: Acute Current Visit: Yes - Review/Management Plan: will check repeat CT brain and CTA brain and neck Bedrest overnight
--- NOTE | 2018-05-30 18:18 | CT ---
EXAM DATE: 05/30/2018 6:10 PM EDT AGE/SEX: 57 years / Female INDICATIONS: Altered mental status. CLINICAL DATA: This is the patient's initial encounter. Patient reports that signs and symptoms have been present for 1 day and indicates a pain score of 0/10. MEDICAL/SURGICAL HISTORY: Transient ischemic attack. None. RADIATION DOSE: 38.13 CTDI (mGy) COMPARISON: [facility], CT HEAD W/O CONTRAST, 05/27/2018. . TECHNIQUE: CT of the head without contrast. Using automated exposure control and adjustment of the mA and/or kV according to patient size, radiation dose was kept as low as reasonably achievable to ob tain optimal diagnostic quality images. DICOM format image data is available electronically for revi ew and comparison. FINDINGS: Cerebrum: Abnormal. There is a new ill-defined hypodensity in the left novak radiata measuring 1.4 cm. This is a new finding when compared to prior CT 3 days ago. No evidence of blood products. Mild h ypodensity adjacent to the left frontal horn is unchanged from prior CT. The ventricles are symmetric in size. No evidence of midline shift. No extra-axial fluid collections. There is good recio-white ma tter differentiation. Posterior Fossa: The cerebellum and brainstem are intact. The 4th ventricle is midline. The cerebe llopontine angle is unremarkable. Extracranial: The visualized portion of the orbits is intact. Skull: The calvaria is intact. No evidence of skull fracture. CONCLUSION: Interval development of a new ill-defined hypodensity in the left novak radiata. The appearance is n onspecific, but since it has developed in the last 3 days, a nonhemorrhagic infarction is in the diff erential considerations. Electronically signed by: Jesus Mc MD 05/30/2018 6:17 PM EDT
--- NOTE | 2018-05-30 19:21 | P.PN ---
Subjective Interval history: Follow-up for crescendo TIAs and severe stenosis of the left internal carotid artery. Patient is resting in bed. However, family members are worried about dysarthria and facial droop that is now persistent. No other focal weakness. No CP, SOB, fever, chills. Physical Exam Vital signs: Vital Signs 05/29/18 19:19 05/29/18 20:00 05/29/18 20:42 Temperature 98 F Pulse Rate 60 Respiratory Rate 18 13 Blood Pressure 159/83 H Pulse Oximetry 98 98 05/30/18 00:00 05/30/18 04:00 05/30/18 07:41 Temperature 97.6 F 98.1 F Pulse Rate 60 62 Respiratory Rate 13 18 Blood Pressure 130/86 153/81 H Pulse Oximetry 98 98 98 05/30/18 08:00 05/30/18 10:00 05/30/18 10:30 Temperature 98.1 F Pulse Rate 60 60 Respiratory Rate 16 20 Blood Pressure 182/88 H Pulse Oximetry 99 05/30/18 12:00 05/30/18 16:00 05/30/18 17:24 Temperature 98 F 98.1 F Pulse Rate 62 60 Respiratory Rate 14 21 17 Blood Pressure 183/78 H 167/91 H Pulse Oximetry 96 99 Intake & Output 05/30/18 05/30/18 05/31/18 06:59 18:59 06:59 Intake Total 450 / 450 555 / 555 Output Total 1200 / 1200 Balance 450 / 450 -645 / -645 Weight 79.3 kg Intake: IV 250 / 250 75 / 75 Levophed Inj 4 MG In NS Inj 246 250 / 250 75 / 75 ML @ 2 MCG/MIN 7.5 mls/hr IV. SIG TITRATE PRN Rx#:[id number] Oral 200 / 200 480 / 480 Output: Urine 1200 / 1200 Other: # Voids 4 Date of Last Bowel Movement 05/28/18 05/28/18 # Bowel Movements 0 0 Narrative: GENERAL: Alert, oriented 3, NAD. SKIN: Warm and dry. HEAD: Normocephalic. EYES: No scleral icterus. No injection or drainage. NECK: Supple, trachea midline. No JVD or lymphadenopathy. CARDIOVASCULAR: Regular rate and rhythm without murmurs, gallops, or rubs. RESPIRATORY: Breath sounds equal bilaterally. No accessory muscle use. GASTROINTESTINAL: Abdomen soft, non-tender, nondistended. MUSCULOSKELETAL: No cyanosis, or edema. BACK: Nontender without obvious deformity. No CVA tenderness. Neuro: CN II to XII grossly intact. Mild facial droop noted, speech is somewhat slurred. - Urinary Catheter Management Indwelling Urethral Catheter Cath placed during this visit: yes, but has since been removed by the nurse Reason for continuing: Decision to DC catheter Insertion date: 05/28/18 Insertion time: 12:58 Removal date: 05/29/18 Removal time: 09:00 Results - Labs CBC & Chem 7: 05/29/18 06:34 05/27/18 12:17 - Imaging Impressions Head CT 05/30/18 17:03 CONCLUSION: Interval development of a new ill-defined hypodensity in the left novak radiata. The appearance is nonspecific, but since it has developed in the last 3 days, a nonhemorrhagic infarction is in the differential considerations. - Procedures 05/28/2018 Left carotid endarterectomy and patch angioplasty. Assessment and Plan - Assessment (1) Brain TIA Code(s): G45.9 - Transient cerebral ischemic attack, unspecified Status: Acute (2) Carotid artery stenosis Code(s): I65.29 - Occlusion and stenosis of unspecified carotid artery Status : Acute - Plan Ms. Herminia Small is a pleasant 57-year-old female with a history of CAD, symptomatic bradycardia status post pacemaker placement, tobacco abuse who presents to the emergency department due to right-sided weakness and slurred speech. Although the initial symptoms resolved by the time EMS came, patient had several other episodes while she remained in the emergency department. Workup indicated left-sided high-grade carotid stenosis. Neurology as well as vascular surgery were consulted. Crescendo TIAs High-grade left-sided carotid stenosis -Left carotid endarterectomy and patch angioplasty 05/28/2018. -Lipitor 40mg QHS. Continue Plavix 75mg Qday. -Due to persistent symptoms, Neurology is obtaining CT head, CTA. Patient cannot undergo MRI studies due to pacemaker. Hx of CAD s/p stent Hx of Symptomatic bradycardia s/p Pacemaker Tobacco abuse - No acute cardiac issues. - Continue nicotine patch. Hypertension - Mildly hypertensive. Patient's Levophed was discontinued not too long ago. - Will monitor. If needed, we can start Amlodipine. Full code. Ambulation. (1) Brain TIA Qualifiers: Transient cerebral ischemia type: carotid artery syndrome (hemispheric) Qualified Code(s): G45.1 - Carotid artery syndrome (hemispheric) (2) Carotid artery stenosis Qualifiers: Laterality: left Qualified Code(s): I65.22 - Occlusion and stenosis of left carotid artery
--- NOTE | 2018-05-30 19:29 | CT ---
EXAM DATE: 05/30/2018 7:09 PM EDT AGE/SEX: 57 years / Female INDICATIONS: Altered mental status. CLINICAL DATA: This is the patient's initial encounter. Patient reports that signs and symptoms have been present for 1 day and indicates a pain score of 0/10. MEDICAL/SURGICAL HISTORY: Transient ischemic attack. None. RADIATION DOSE: 28.71 CTDI (mGy) ; Combined studies COMPARISON: No prior exams available for comparison. TECHNIQUE: Volumetric scanning was performed using a multi-row detector CT scanner during bolus infu nohemi of 75 ml Omnipaque 350 (iohexol) nonionic water-soluble contrast as a cumulative dose for multi ple exams. The data was post processed with a variety of visualization algorithms including full vo lume maximum intensity projection, multi-planar sliding thin slab reformation, curved planar reformat ion, and surface rendering techniques. Using automated exposure control and adjustment of the mA and /or kV according to patient size, radiation dose was kept as low as reasonably achievable to obtain o ptimal diagnostic quality images. DICOM format image data is available electronically for review and comparison. FINDINGS: There is excellent visualization of the major intracranial vessels of the second order branch vessels . There is a 3 mm round aneurysm in the anterior communicating artery. Flow in the A1 and A2 segments bilaterally. The left posterior cerebral artery arises from the anterior circulation. The basilar ar boyd is normal in appearance. No evidence of vessel truncation. CONCLUSION: 1. 3 mm anterior communicating aneurysm. 2. Otherwise negative CTA [place] [facility] [place]. Electronically signed by: Jesus Mc MD 05/30/2018 7:28 PM EDT
--- NOTE | 2018-05-30 19:34 | CT ---
EXAM DATE: 05/30/2018 7:23 PM EDT AGE/SEX: 57 years / Female INDICATIONS: Altered mental status. CLINICAL DATA: This is the patient's initial encounter. Patient reports that signs and symptoms have been present for 1 day and indicates a pain score of 0/10. MEDICAL/SURGICAL HISTORY: Transient ischemic attack. None. RADIATION DOSE: 28.71 CTDI (mGy) ; Combined studies COMPARISON: No prior exams available for comparison. TECHNIQUE: Volumetric scanning was performed using a multirow detector CT scanner during bolus infus ion of 75 ml Omnipaque 350 (iohexol) nonionic water-soluble contrast as a cumulative dose for multip le exams. The data was postprocessed with a variety of visualization algorithms including full-volu me maximum intensity projection, multiplanar sliding thin-slab reformation, curved-planar reformation , and surface-rendering techniques. Using automated exposure control and adjustment of the mA and/or kV according to patient size, radiation dose was kept as low as reasonably achievable to obtain opti mal diagnostic quality images. DICOM format image data is available electronically for review and co mparison. FINDINGS: Aortic Arch: There is a three-vessel origin of the great vessels from the aorta. No evidence of ost ial narrowing Right Carotid: The common carotid artery is intact. The carotid bulb has a normal dimension without ulceration or narrowing. There is some mild wall calcification in the carotid bulb. The internal ca rotid artery lumen is smooth without stenosis. The external carotid artery is intact. Left Carotid: Recent carotid endarterectomy with multiple hemoclips in the left neck and scattered f lecks of gas in the soft tissues of the lateral compartment of the left neck. The common and internal carotid artery are widely patent. The carotid bulb is capacious. Vertebrals: Right dominant vertebral system. The proximal one half of the left vertebral artery is n arrowed measuring less than 3 mm and, at the level of C4, the left vertebral has a more symmetric dim ension when compared to the right side. Elevated flow velocities and ICA/CCA ratios have been found to correlate with increased degrees of ve ssel stenosis, calculated as percentage of diameter relative to a normal segment of distal ICA/CCA. CONCLUSION: 1. Expected postsurgical changes from left carotid endarterectomy. The left carotid system is widely patent. 2. No stenosis in the right carotid. 3. Right dominant vertebral system. Electronically signed by: Jesus Mc MD 05/30/2018 7:33 PM EDT
[2018-05-30] MEDS ORDERED: Aspirin 325 MG Tablet PO ONE (19:45)
[2018-05-31] MEDS: ceFAZolin 2 GM Premix Inj 2 GM/50 ML PIGGYBACK IV.SIG ONE (02:20)
[2018-05-31] MEDS: Aspirin 325 MG Tablet PO SCH (08:54)
--- NOTE | 2018-05-31 10:30 | P.PNNEU ---
Subjective Subjective Comments: No acute events reported Cross cover No headache No chest pain No dyspnea Active Medications: Active Medications Al Hydroxide/Mg Hydroxide (Milk Of Magnesia Liq) 30 ml PO Q12H PRN PRN Reason: Mild Constipation Aspirin (Aspirin) 325 mg PO DAILY [facility] Last Admin: 05/31/18 08:54 Dose: 325 mg Atorvastatin Calcium (Lipitor) 40 mg PO HS [facility] Last Admin: 05/30/18 20:35 Dose: 40 mg Bisacodyl (Dulcolax Supp) 10 mg RECTAL DAILY PRN PRN Reason: SEVERE CONSITIPATION Clonidine HCl (Catapress-Tts 0.1 Mg Patch.7d) 1 patch T-DERMAL Q7D [facility] Last Admin: 05/30/18 21:24 Dose: 1 patch Clopidogrel Bisulfate (Plavix) 75 mg PO DAILY [facility] Last Admin: 05/31/18 08:54 Dose: 75 mg Lactulose (Lactulose Liq) 30 ml PO DAILY PRN PRN Reason: SEVERE CONSITIPATION Nitroglycerin (Nitro-Dur 0.1 Mg Patch.24 Hr) 1 patch T-DERMAL DAILY [facility] Last Admin: 05/31/18 09:35 Dose: 1 patch Oxycodone/Acetaminophen (Percocet 5/325 Mg) 1 tab PO Q4H PRN PRN Reason: PAIN SCALE 6 TO 10 Last Admin: 05/31/18 08:53 Dose: 1 tab Patch Removal (Remove Old Patch) 1 each T-DERMAL Q7D [facility] Patch Removal (Remove Old Patch) 1 each T-DERMAL DAILY [facility] Last Admin: 05/31/18 09:36 Dose: 1 each Sennosides (Senokot) 17.2 mg PO Q12H PRN PRN Reason: Moderate Constipation Sodium Chloride (Ns Flush) 2 ml IV.FLUSH PRN PRN PRN Reason: FLUSH AFTER USING IV ACCESS Temazepam (Restoril) 15 mg PO HS PRN PRN Reason: INSOMNIA Last Admin: 05/29/18 00:25 Dose: 15 mg Terbutaline Sulfate (Brethine Inj) 1 mg SQ UNSCH PRN PRN Reason: For Extravasation Allergies/Adverse Reactions: Allergies Allergy/AdvReac Type Severity Reaction Status Date / Time dopamine Allergy Mild palpitation Verified 05/27/18 12:24 s Review of Systems All other systems reviewed negative except as stated in HPI Physical Exam Vital signs: Vital Signs 05/30/18 10:30 05/30/18 12:00 05/30/18 16:00 Temperature 98 F 98.1 F Pulse Rate 62 60 Respiratory Rate 20 14 21 Blood Pressure 183/78 H 167/91 H Pulse Oximetry 96 99 05/30/18 17:24 05/30/18 19:15 05/30/18 20:00 Temperature 98.7 F Pulse Rate 66 Respiratory Rate 17 15 Blood Pressure 195/91 H Pulse Oximetry 98 100 05/30/18 22:00 05/30/18 22:28 05/30/18 23:10 Temperature 98.3 F Pulse Rate 63 65 66 Respiratory Rate 16 18 Blood Pressure 185/84 H 218/105 H Pulse Oximetry 97 05/31/18 00:00 05/31/18 04:00 05/31/18 08:00 Temperature 97.7 F 97.6 F 97.9 F Pulse Rate 62 66 69 Respiratory Rate 15 17 16 Blood Pressure 172/97 H 197/88 H 195/93 H Pulse Oximetry 98 98 96 Intake & Output 05/30/18 05/31/18 05/31/18 18:59 06:59 18:59 Intake Total 555 / 555 480 / 480 Output Total 1200 / 1200 1600 / 1600 Balance -645 / -645 -1120 / -1120 Weight 82 kg Intake: IV 75 / 75 Levophed Inj 4 MG In NS Inj 246 75 / 75 ML @ 2 MCG/MIN 7.5 mls/hr IV. SIG TITRATE PRN Rx#:[id number] Oral 480 / 480 480 / 480 Output: Urine 1200 / 1200 1600 / 1600 Other: Date of Last Bowel Movement 05/28/18 05/29/18 # Bowel Movements 0 Narrative: Awake alert oriented 3 no aphasia was just mild dysarthria slightly reduced right nasolabial fold no pronator drift with slight reduced fine finger movements on the right compared to the left able to whole extremity to gravity for over 5 seconds looks comfortable sitting up in bed - Urinary Catheter Management Indwelling Urethral Catheter Cath placed during this visit: yes, but has since been removed by the nurse Reason for continuing: Decision to DC catheter Insertion date: 05/28/18 Insertion time: 12:58 Removal date: 05/29/18 Removal time: 09:00 Review/Management - Diagnosis (1) TIA involving carotid artery Code(s): G45.1 - Carotid artery syndrome (hemispheric) Status: Acute Current Visit: Yes - Review/Management Plan: Imaging reviewed CTAs, CT brain Doing well with very minimal deficits status post left carotid endarterectomy which is very high grade and is doing exceptionally well all things considered Continue antiplatelets Hydration Permissive hypertension avoid hypotension Appreciate vascular surgery Mild PT over the weekend We will follow
--- NOTE | 2018-05-31 12:00 | P.PNCA ---
- Note Subjective/Hospital Course: 57-year-old female with a crescendo TIAs and 90-95% stenosis of the left internal carotid artery for urgent carotid endarterectomy within 24 hours Will leave on heparin IV Discussed with Dr. Jim Thank you very much for your referral Full consult dictated J 05/29/2018 Patient awake alert oriented status post left carotid endarterectomy and patch angioplasty Incision clean and dry Neurologically fully intact throughout the night This morning patient started slurring speech slightly although no other neurologic symptoms at that time it was noted that patient was given. Antihypertensives and pain medication with a very short period of time and systolic blood pressure dropped to 92 mmHg which is very low for this patient. After surgery of the sorts patients require higher systolic blood pressure to maintain perfusion and as soon as the pressure was raised, patient's symptoms resolved Therefore all antihypertensives have been removed and patient was placed on small dose Levophed DC NATHALIE DC A-line DC Birch We will give patient another day in the ICU due to blood pressure issues and then transferred to the floor and discharge 05/30/2018 Incision clean and dry patient is awake alert and oriented Speech pattern has returned to normal Motorically equal bilateral strength It appears that low blood pressure is immediately associated with hypoperfusion and dysarthria and therefore patient requires higher blood pressure levels. On the other hand patients blood pressure is very hard to control and his volatile either being around 190 mm systolic or dropping very easily to be low 100 mmHg with very small manipulations with antihypertensives Small dose of Levophed has been removed We will transfer to floor today Patient is not to get any antihypertensives unless approved by me due to very volatile nature of her blood pressure and sudden drops and rises in the same. After carotid endarterectomy patients do well with higher blood pressure Patient will likely be able to go home tomorrow from vascular surgery point Repeat CT scan of the brain reveals a small area of diffusion changes consistent with either ischemic stroke, or more likely reperfusion injury after left carotid endarterectomy. Left carotid artery is widely patent 05/31/2018 Patient doing very well this morning she is neurologically intact although she has slight dysarthria Above-noted changes on the CT scan of the brain consistent with hyperperfusion injury after endarterectomy for near total occlusion Nothing to add from my point Incision is clean and dry Blood pressure management now as per medicine with understanding that patient has volatile blood pressure at the drops rapidly and then rises rapidly Objective: Vital Signs - 24 hr 05/30/18 12:00 05/30/18 16:00 05/30/18 17:24 Temperature 98 F 98.1 F Pulse Rate 62 60 Respiratory Rate 14 21 17 Blood Pressure 183/78 H 167/91 H Pulse Oximetry 96 99 05/30/18 19:15 05/30/18 20:00 05/30/18 22:00 Temperature 98.7 F Pulse Rate 66 63 Respiratory Rate 15 16 Blood Pressure 195/91 H 185/84 H Pulse Oximetry 98 100 05/30/18 22:28 05/30/18 23:10 05/31/18 00:00 Temperature 98.3 F 97.7 F Pulse Rate 65 66 62 Respiratory Rate 18 15 Blood Pressure 218/105 H 172/97 H Pulse Oximetry 97 98 05/31/18 04:00 05/31/18 08:00 Temperature 97.6 F 97.9 F Pulse Rate 66 69 Respiratory Rate 17 16 Blood Pressure 197/88 H 195/93 H Pulse Oximetry 98 96 Result Diagrams: 05/29/18 06:34 05/27/18 12:17
--- NOTE | 2018-05-31 13:37 | P.PN ---
Subjective Interval history: Follow-up for crescendo TIAs and severe stenosis of the left internal carotid artery. Patient is currently doing well. Her speech is still somewhat slurred but not worse compared to yesterday. Physical Exam Vital signs: Vital Signs 05/30/18 16:00 05/30/18 17:24 05/30/18 19:15 Temperature 98.1 F Pulse Rate 60 Respiratory Rate 21 17 Blood Pressure 167/91 H Pulse Oximetry 99 98 05/30/18 20:00 05/30/18 22:00 05/30/18 22:28 Temperature 98.7 F Pulse Rate 66 63 65 Respiratory Rate 15 16 Blood Pressure 195/91 H 185/84 H Pulse Oximetry 100 05/30/18 23:10 05/31/18 00:00 05/31/18 04:00 Temperature 98.3 F 97.7 F 97.6 F Pulse Rate 66 62 66 Respiratory Rate 18 15 17 Blood Pressure 218/105 H 172/97 H 197/88 H Pulse Oximetry 97 98 98 05/31/18 08:00 05/31/18 08:20 05/31/18 12:00 Temperature 97.9 F 97.8 F Pulse Rate 69 66 55 L Respiratory Rate 16 17 Blood Pressure 195/93 H 164/87 H Pulse Oximetry 96 96 Intake & Output 05/30/18 05/31/18 05/31/18 18:59 06:59 18:59 Intake Total 555 / 555 480 / 480 Output Total 1200 / 1200 1600 / 1600 Balance -645 / -645 -1120 / -1120 Weight 82 kg Intake: IV 75 / 75 Levophed Inj 4 MG In NS Inj 246 75 / 75 ML @ 2 MCG/MIN 7.5 mls/hr IV. SIG TITRATE PRN Rx#:[id number] Oral 480 / 480 480 / 480 Output: Urine 1200 / 1200 1600 / 1600 Other: Date of Last Bowel Movement 05/28/18 05/29/18 # Bowel Movements 0 - Urinary Catheter Management Indwelling Urethral Catheter Cath placed during this visit: yes, but has since been removed by the nurse Reason for continuing: Decision to DC catheter Insertion date: 05/28/18 Insertion time: 12:58 Removal date: 05/29/18 Removal time: 09:00 Results - Labs CBC & Chem 7: 05/29/18 06:34 05/27/18 12:17 - Imaging Impressions Head CT 05/30/18 17:03 CONCLUSION: Interval development of a new ill-defined hypodensity in the left novak radiata. The appearance is nonspecific, but since it has developed in the last 3 days, a nonhemorrhagic infarction is in the differential considerations. Head CTA 05/30/18 17:08 CONCLUSION: 1. 3 mm anterior communicating aneurysm. 2. Otherwise negative CTA [place]. Neck CTA 05/30/18 17:08 CONCLUSION: 1. Expected postsurgical changes from left carotid endarterectomy. The left carotid system is widely patent. 2. No stenosis in the right carotid. 3. Right dominant vertebral system. - Procedures 05/28/2018 Left carotid endarterectomy and patch angioplasty. Assessment and Plan - Assessment (1) Brain TIA Code(s): G45.9 - Transient cerebral ischemic attack, unspecified Status: Acute (2) Carotid artery stenosis Code(s): I65.29 - Occlusion and stenosis of unspecified carotid artery Status : Acute - Plan Ms. Herminia Small is a pleasant 57-year-old female with a history of CAD, symptomatic bradycardia status post pacemaker placement, tobacco abuse who presents to the emergency department due to right-sided weakness and slurred speech. Although the initial symptoms resolved by the time EMS came, patient had several other episodes while she remained in the emergency department. Workup indicated left-sided high-grade carotid stenosis. Neurology as well as vascular surgery were consulted. Crescendo TIAs High-grade left-sided carotid stenosis Left sided acute stroke -Left carotid endarterectomy and patch angioplasty 05/28/2018. -Lipitor 40mg QHS. Continue Plavix 75mg Qday. -Due to persistent symptoms, Neurology is obtaining CT head, CTA. CT head shows ill-defined density in the left novak radiata. Hx of CAD s/p stent Hx of Symptomatic bradycardia s/p Pacemaker Tobacco abuse - No acute cardiac issues. - Continue nicotine patch. Hypertension - Labile blood pressure. Currently has Clonidine 0.1mg Patch. - Will consider Amlodipine 2.5mg to start in the AM for better BP control. Full code. Ambulation. Discharge Plan: If BP remains stable, patient can be discharged home tomorrow . (1) Brain TIA Qualifiers: Transient cerebral ischemia type: carotid artery syndrome (hemispheric) Qualified Code(s): G45.1 - Carotid artery syndrome (hemispheric) (2) Carotid artery stenosis Qualifiers: Laterality: left Qualified Code(s): I65.22 - Occlusion and stenosis of left carotid artery
--- NOTE | 2018-05-31 16:42 | ECHRPT ---
Indication: CVA/TIA CONCLUSIONS The left ventricular systolic function is normal with an estimated ejection fraction in the range of 60-65%. Normal left ventricular size. Wall thickness is normal. No regional wall motion abnormalities are present. There is trace tricuspid valve regurgitation. The estimated pulmonary arterial pressure is 27 mmHg. BP: / HR: Rhythm: Sinus MEASUREMENTS (Male / Female) Normal Values Technical Quality:Fair 2D ECHO LVOT Diameter 1.7 cm LV Ejection Fraction MOD 4C 69.4 % LV Ejection Fraction 4C AL 69.9 % M-MODE Aortic Root Diameter MM 1.9 cm LA Systolic Diameter MM 3.9 cm LA Ao Ratio MM 2.1 AV Cusp Separation MM 1.8 cm DOPPLER AV Peak Velocity 176.0 cm/s AV Peak Gradient 12.4 mmHg LVOT Peak Velocity 143.0 cm/s LVOT Peak Gradient 8.2 mmHg AV Area Cont Eq pk 1.8 cm MV Area PHT 2.5 cm Mitral E Point Velocity 65.6 cm/s Mitral A Point Velocity 89.8 cm/s Mitral E to A Ratio 0.7 TR Peak Velocity 206.0 cm/s TR Peak Gradient 17.0 mmHg Right Atrial Pressure 10.0 mmHg Pulmonary Artery Systolic Pressu 27.0 mmHg Right Ventricular Systolic Press 27.0 mmHg PV Peak Velocity 106.0 cm/s PV Peak Gradient 4.5 mmHg FINDINGS LEFT VENTRICLE The left ventricular systolic function is normal with an estimated ejection fraction in the range of 60-65%. Normal left ventricular size. Wall thickness is normal. No regional wall motion abnormalities are present. Doppler parameters are consistent with impaired left ventricular relaxtion (grade 1 diastolic dysfun ction). RIGHT VENTRICLE Normal right ventricular size and systolic function. LEFT ATRIUM The left atrial size is normal. RIGHT ATRIUM The right atrial size is normal. ATRIAL SEPTUM Normal atrial septal thickness without atrial level shunting by limited color doppler interrogation. AORTA The aortic root and proximal ascending aorta are normal in size on limited imaging. MITRAL VALVE Structurally normal mitral valve. No mitral valve stenosis or regurgitation. AORTIC VALVE Trileaflet aortic valve. No aortic valve stenosis or regurgitation. TRICUSPID VALVE Structurally normal tricuspid valve. There is trace tricuspid valve regurgitation. The estimated pulmonary arterial pressure is 27 mmHg. PULMONARY VALVE No pulmonary valve regurgitation or stenosis. VESSELS The inferior vena cava is normal in size. PERICARDIUM No pericardial effusion. Raghavendra Burks MD (Electronically Signed) Final Date:31 May 2018 16:41
[2018-06-01] MEDS ORDERED: amLODIPine 5 MG Tablet PO SCH (09:00)
[2018-06-01] MEDS: Aspirin 325 MG Tablet PO SCH (09:14)
--- NOTE | 2018-06-01 09:48 | P.PNNEU ---
Subjective Subjective Comments: No acute events reported No headache No chest pain No dyspnea Active Medications: Active Medications Al Hydroxide/Mg Hydroxide (Milk Of Magnesia Liq) 30 ml PO Q12H PRN PRN Reason: Mild Constipation Amlodipine Besylate (Norvasc) 2.5 mg PO DAILY [facility] Last Admin: 06/01/18 09:13 Dose: 2.5 mg Aspirin (Aspirin) 325 mg PO DAILY [facility] Last Admin: 06/01/18 09:14 Dose: 325 mg Atorvastatin Calcium (Lipitor) 40 mg PO HS [facility] Last Admin: 05/31/18 22:23 Dose: 40 mg Bisacodyl (Dulcolax Supp) 10 mg RECTAL DAILY PRN PRN Reason: SEVERE CONSITIPATION Clonidine HCl (Catapress-Tts 0.1 Mg Patch.7d) 1 patch T-DERMAL Q7D [facility] Last Admin: 05/30/18 21:24 Dose: 1 patch Clopidogrel Bisulfate (Plavix) 75 mg PO DAILY [facility] Last Admin: 06/01/18 09:13 Dose: 75 mg Lactulose (Lactulose Liq) 30 ml PO DAILY PRN PRN Reason: SEVERE CONSITIPATION Miscellaneous (Pill Splitter) 1 each OTHER UNSCH [facility] Nitroglycerin (Nitro-Dur 0.1 Mg Patch.24 Hr) 1 patch T-DERMAL DAILY [facility] Last Admin: 06/01/18 09:15 Dose: 1 patch Oxycodone/Acetaminophen (Percocet 5/325 Mg) 1 tab PO Q4H PRN PRN Reason: PAIN SCALE 6 TO 10 Last Admin: 06/01/18 09:13 Dose: 1 tab Patch Removal (Remove Old Patch) 1 each T-DERMAL Q7D [facility] Patch Removal (Remove Old Patch) 1 each T-DERMAL DAILY [facility] Last Admin: 06/01/18 09:15 Dose: 1 each Sennosides (Senokot) 17.2 mg PO Q12H PRN PRN Reason: Moderate Constipation Sodium Chloride (Ns Flush) 2 ml IV.FLUSH PRN PRN PRN Reason: FLUSH AFTER USING IV ACCESS Temazepam (Restoril) 15 mg PO HS PRN PRN Reason: INSOMNIA Last Admin: 05/29/18 00:25 Dose: 15 mg Terbutaline Sulfate (Brethine Inj) 1 mg SQ UNSCH PRN PRN Reason: For Extravasation Allergies/Adverse Reactions: Allergies Allergy/AdvReac Type Severity Reaction Status Date / Time dopamine Allergy Mild palpitation Verified 05/27/18 12:24 s Review of Systems All other systems reviewed negative except as stated in HPI Physical Exam Vital signs: Vital Signs 05/31/18 12:00 05/31/18 16:00 05/31/18 16:33 Temperature 97.8 F 97.9 F Pulse Rate 65 60 60 Respiratory Rate 17 16 Blood Pressure 164/87 H 155/82 H Pulse Oximetry 96 95 05/31/18 20:00 05/31/18 23:58 06/01/18 04:00 Temperature 97.5 F L 97.6 F 97.4 F L Pulse Rate 60 58 L 68 Respiratory Rate 17 16 16 Blood Pressure 149/83 H 138/78 175/95 H Pulse Oximetry 95 95 98 06/01/18 08:00 Temperature 97.6 F Pulse Rate 69 Respiratory Rate 16 Blood Pressure 133/84 Pulse Oximetry 93 L Intake & Output 05/31/18 06/01/18 06/01/18 18:59 06:59 18:59 Weight 82.2 kg Other: # Voids 3 Narrative: Awake alert oriented 3 no aphasia was just mild dysarthria slightly reduced right nasolabial fold no pronator drift with slight reduced fine finger movements on the right compared to the left able to whole extremity to gravity for over 5 seconds looks comfortable sitting up in bed - Constitutional no acute distress - Routine HEENT Exam Head: Present: normocephalic, atraumatic Eye: Present: EOMI - Routine Neck Exam Present: supple - Urinary Catheter Management Indwelling Urethral Catheter Cath placed during this visit: yes, but has since been removed by the nurse Reason for continuing: Decision to DC catheter Insertion date: 05/28/18 Insertion time: 12:58 Removal date: 05/29/18 Removal time: 09:00 Review/Management - Diagnosis (1) TIA involving carotid artery Code(s): G45.1 - Carotid artery syndrome (hemispheric) Status: Acute Current Visit: Yes - Review/Management Plan: Imaging reviewed CTAs, CT brain Doing well with very minimal deficits status post left carotid endarterectomy which is very high grade and is doing exceptionally Recommendations Neurologically stable Continue antiplatelets Hydration Permissive hypertension avoid hypotension Appreciate vascular surgery Plan for discharge possibly in the a.m. based on therapy recommendations
--- NOTE | 2018-06-01 12:43 | P.PN ---
Subjective Interval history: Follow-up for crescendo TIAs, acute stroke, and severe stenosis of the left internal carotid artery. Patient is doing well. Speech is somewhat better per patient and her family. No fever, chills. Wants to go home. Physical Exam Vital signs: Vital Signs 05/31/18 16:00 05/31/18 16:33 05/31/18 20:00 Temperature 97.9 F 97.5 F L Pulse Rate 60 60 60 Respiratory Rate 16 17 Blood Pressure 155/82 H 149/83 H Pulse Oximetry 95 95 05/31/18 23:58 06/01/18 04:00 06/01/18 08:00 Temperature 97.6 F 97.4 F L 97.6 F Pulse Rate 58 L 68 69 Respiratory Rate 16 16 16 Blood Pressure 138/78 175/95 H 133/84 Pulse Oximetry 95 98 93 L 06/01/18 09:00 Temperature Pulse Rate 66 Respiratory Rate Blood Pressure Pulse Oximetry Intake & Output 05/31/18 06/01/18 06/01/18 18:59 06:59 18:59 Weight 82.2 kg Other: # Voids 3 - Urinary Catheter Management Indwelling Urethral Catheter Cath placed during this visit: yes, but has since been removed by the nurse Reason for continuing: Decision to DC catheter Insertion date: 05/28/18 Insertion time: 12:58 Removal date: 05/29/18 Removal time: 09:00 Results - Labs CBC & Chem 7: 05/29/18 06:34 05/27/18 12:17 - Procedures 05/28/2018 Left carotid endarterectomy and patch angioplasty. Assessment and Plan - Assessment (1) Brain TIA Code(s): G45.9 - Transient cerebral ischemic attack, unspecified Status: Acute (2) Carotid artery stenosis Code(s): I65.29 - Occlusion and stenosis of unspecified carotid artery Status : Acute - Plan Ms. Herminia Small is a pleasant 57-year-old female with a history of CAD, symptomatic bradycardia status post pacemaker placement, tobacco abuse who presents to the emergency department due to right-sided weakness and slurred speech. Although the initial symptoms resolved by the time EMS came, patient had several other episodes while she remained in the emergency department. Workup indicated left-sided high-grade carotid stenosis. Neurology as well as vascular surgery were consulted. Crescendo TIAs High-grade left-sided carotid stenosis Left sided acute stroke -Left carotid endarterectomy and patch angioplasty 05/28/2018. -Lipitor 40mg QHS. Continue Plavix 75mg Qday. -Repeat CT head shows ill-defined density in the left novak radiata. Hx of CAD s/p stent Hx of Symptomatic bradycardia s/p Pacemaker Tobacco abuse - No acute cardiac issues. - Continue nicotine patch. Hypertension - Labile blood pressure. Currently has Clonidine 0.1mg Patch. - Continue Amlodipine 2.5mg Qday. Full code. Ambulation. Discharge Plan: Will get clearance from Dr. iJm (Neurologist) and plan on discharging patient on 06/02/2018. (1) Brain TIA Qualifiers: Transient cerebral ischemia type: carotid artery syndrome (hemispheric) Qualified Code(s): G45.1 - Carotid artery syndrome (hemispheric) (2) Carotid artery stenosis Qualifiers: Laterality: left Qualified Code(s): I65.22 - Occlusion and stenosis of left carotid artery
--- NOTE | 2018-06-01 12:55 | P.PNCA ---
- Note Subjective/Hospital Course: 57-year-old female with a crescendo TIAs and 90-95% stenosis of the left internal carotid artery for urgent carotid endarterectomy within 24 hours Will leave on heparin IV Discussed with Dr. Jim Thank you very much for your referral Full consult dictated J 05/29/2018 Patient awake alert oriented status post left carotid endarterectomy and patch angioplasty Incision clean and dry Neurologically fully intact throughout the night This morning patient started slurring speech slightly although no other neurologic symptoms at that time it was noted that patient was given. Antihypertensives and pain medication with a very short period of time and systolic blood pressure dropped to 92 mmHg which is very low for this patient. After surgery of the sorts patients require higher systolic blood pressure to maintain perfusion and as soon as the pressure was raised, patient's symptoms resolved Therefore all antihypertensives have been removed and patient was placed on small dose Levophed DC NATHALIE DC A-line DC Birch We will give patient another day in the ICU due to blood pressure issues and then transferred to the floor and discharge 05/30/2018 Incision clean and dry patient is awake alert and oriented Speech pattern has returned to normal Motorically equal bilateral strength It appears that low blood pressure is immediately associated with hypoperfusion and dysarthria and therefore patient requires higher blood pressure levels. On the other hand patients blood pressure is very hard to control and his volatile either being around 190 mm systolic or dropping very easily to be low 100 mmHg with very small manipulations with antihypertensives Small dose of Levophed has been removed We will transfer to floor today Patient is not to get any antihypertensives unless approved by me due to very volatile nature of her blood pressure and sudden drops and rises in the same. After carotid endarterectomy patients do well with higher blood pressure Patient will likely be able to go home tomorrow from vascular surgery point Repeat CT scan of the brain reveals a small area of diffusion changes consistent with either ischemic stroke, or more likely reperfusion injury after left carotid endarterectomy. Left carotid artery is widely patent 05/31/2018 Patient doing very well this morning she is neurologically intact although she has slight dysarthria Above-noted changes on the CT scan of the brain consistent with hyperperfusion injury after endarterectomy for near total occlusion Nothing to add from my point Incision is clean and dry Blood pressure management now as per medicine with understanding that patient has volatile blood pressure at the drops rapidly and then rises rapidly 06/01/2018 Patient doing very well at this time Fully agree with neurology and patient can be discharged from my point any time follow-up with my office in about 2-3 weeks Objective: Vital Signs - 24 hr 05/31/18 16:00 05/31/18 16:33 05/31/18 20:00 Temperature 97.9 F 97.5 F L Pulse Rate 60 60 60 Respiratory Rate 16 17 Blood Pressure 155/82 H 149/83 H Pulse Oximetry 95 95 05/31/18 23:58 06/01/18 04:00 06/01/18 08:00 Temperature 97.6 F 97.4 F L 97.6 F Pulse Rate 58 L 68 69 Respiratory Rate 16 16 16 Blood Pressure 138/78 175/95 H 133/84 Pulse Oximetry 95 98 93 L 06/01/18 09:00 Temperature Pulse Rate 66 Respiratory Rate Blood Pressure Pulse Oximetry Result Diagrams: 05/29/18 06:34 05/27/18 12:17
--- NOTE | 2018-06-01 14:26 | P.DCO ---
- Diagnosis (1) Carotid artery stenosis - Physical Therapy Order: Evaluate and treat, Improve ambulation, Strength and gait training - Occupational Therapy Order: Evaluate and treat, Improve ADL, Gross motor coordination, Fine motor coordination - Speech Therapy Order: To improve: Speech and communication skills, Cognitive skills, Swallowing - Home Health Nursing Order: Medical education, Signs/symptoms of disease process, Medication education-adverse effect, Nursing assessment with vital signs - Certification I have seen patient REYNALDO COOL on 06/01/18. My clinical findings support the need for the requested home health care services because: Limited mobility due to disease progression, Deconditioned with increased weakness, Need for psychosocial assistance, High risk of falls I certify that my clinical findings support that this patient is homebound because: Unsafe to leave home unassisted, Need for psychosocial assistance, Unable to use public transportation (1) Carotid artery stenosis Qualifiers: Laterality: left Qualified Code(s): I65.22 - Occlusion and stenosis of left carotid artery
--- NOTE | 2018-06-01 15:05 | P.DS ---
Date of admission: 05/28/18 09:11 Primary care physician: No Primary Care Physician Brief History from admission: Ms. Herminia Small is a 57-year-old female with a history of tobacco abuse, CAD, symptomatic bradycardia status post pacemaker placement who presented to the emergency department due to right-sided weakness as well as slurred speech. She was last seen normal at bedtime on 05/26/2018. This morning she woke up and went to the bathroom. As she was trying to reach for toilet paper she felt a right arm weakness. She was able to come to the kitchen area and sat down. However her speech was noted to be slurred and difficult to understand. Patient 's called 911 and within 10 minutes EMS came and by that time patient's symptoms were largely resolved. However in the emergency department she had several episodes of slurred speech. ED workup shows left-sided carotid artery stenosis about 90% or greater. Head CT did not identify any evidence of stroke. Neurology evaluated patient and recommended vascular surgery consultation due to high-grade internal carotid artery stenosis on the left side. At the time of this interview, patient is resting well. Denies any chest pain, shortness of breath, fever or chills. No cough or abdominal pain. No changes in bowel or bladder habits. Of note, she was taking Aspirin 325mg Qday except last two days. Past medical history: coronary artery disease status post stent placement in 2007, symptomatic bradycardia status post pacemaker placement Family history: Father, mother, brother and sister had heart disease, stroke, cancer. Social hx : Smokes 1 pack a day. DS: Diagnosis - Discharge Diagnosis (1) Carotid artery stenosis Status: Acute (2) TIA involving carotid artery Status: Acute (3) Brain TIA Status: Acute DS: Medications - Discharge Medications Prescriptions: amlodipine [Norvasc] 2.5 mg PO DAILY #30 tab atorvastatin 40 mg PO HS #30 tab clonidine [[id number]] 1 patch TRANSDERMAL Q7D 30 Days each clopidogrel [Plavix] 75 mg PO DAILY #30 tab DS: Summary Hospital Course: Ms. Herminia Small is a pleasant 57-year-old female with a history of CAD, symptomatic bradycardia status post pacemaker placement, tobacco abuse who presents to the emergency department due to right-sided weakness and slurred speech. Although the initial symptoms resolved by the time EMS came, patient had several other episodes while she remained in the emergency department. Workup indicated left-sided high-grade carotid stenosis. Neurology as well as vascular surgery were consulted. Crescendo TIAs High-grade left-sided carotid stenosis Left sided acute stroke -Left carotid endarterectomy and patch angioplasty 05/28/2018. -Lipitor 40mg QHS. Continue Plavix 75mg Qday. -Repeat CT head shows ill-defined density in the left nov[place] radiata. -Follow up with Dr. Jim in the outpatient setting. Hx of CAD s/p stent Hx of Symptomatic bradycardia s/p Pacemaker Tobacco abuse - No acute cardiac issues. - Continue nicotine patch. Hypertension - Labile blood pressure. Currently has Clonidine 0.1mg Patch. - Continue Amlodipine 2.5mg Qday. Full code. Ambulation. Discussed with Dr. Boyer (Vascular surgery) who recommended discharging patient with outpatient follow up. There is no acute neurological concerns. Patient and family want to go home. I did explain that the on-call neurologist recommended waiting until tomorrow. However, patient can follow up with Dr. Boyer as well as Dr. Jim in the outpatient setting. We subsequently discharged patient home with home health PT, OT, Speech. - Time Spent with Patient Total time spent providing and/or coordinating discharge services: Greater than 30 minutes - Quality: VTE Deep Vein Thrombosis/Pulmonary Embolism Present on Admission: No Exam Vital signs: Vital Signs 05/31/18 16:00 05/31/18 16:33 05/31/18 20:00 Temperature 97.9 F 97.5 F L Pulse Rate 60 60 60 Respiratory Rate 16 17 Blood Pressure 155/82 H 149/83 H Pulse Oximetry 95 95 05/31/18 23:58 06/01/18 04:00 06/01/18 08:00 Temperature 97.6 F 97.4 F L 97.6 F Pulse Rate 58 L 68 69 Respiratory Rate 16 16 16 Blood Pressure 138/78 175/95 H 133/84 Pulse Oximetry 95 98 93 L 06/01/18 09:00 06/01/18 12:00 06/01/18 13:25 Temperature 97.7 F Pulse Rate 66 72 61 Respiratory Rate 17 Blood Pressure 125/87 Pulse Oximetry 94 L Intake & Output 05/31/18 06/01/18 06/01/18 18:59 06:59 18:59 Weight 82.2 kg Other: # Voids 3 Narrative: GENERAL: Alert, Oriented x 3, NAD. Speech improved but still has some slurred appearance. SKIN: Warm and dry. HEAD: Normocephalic. EYES: No scleral icterus. No injection or drainage. NECK: Supple, trachea midline. No JVD or lymphadenopathy. CARDIOVASCULAR: Regular rate and rhythm without murmurs, gallops, or rubs. RESPIRATORY: Breath sounds equal bilaterally. No accessory muscle use. GASTROINTESTINAL: Abdomen soft, non-tender, nondistended. MUSCULOSKELETAL: No cyanosis, or edema. BACK: Nontender without obvious deformity. No CVA tenderness. Results Procedures completed during hospitalization: 05/28/2018 Left carotid endarterectomy and patch angioplasty. Echo 05/31/2018 The left ventricular systolic function is normal with an estimated ejection fraction in the range of 60-65%. Normal left ventricular size. Wall thickness is normal. No regional wall motion abnormalities are present. There is trace tricuspid valve regurgitation. The estimated pulmonary arterial pressure is 27 mmHg. - Impressions ITS Impressions Chest X-Ray 05/27/18 12:24 CONCLUSION: No acute cardiopulmonary findings. Head CT 05/30/18 17:03 CONCLUSION: Interval development of a new ill-defined hypodensity in the left [place] radiata. The appearance is nonspecific, but since it has developed in the last 3 days, a nonhemorrhagic infarction is in the differential considerations. Head CTA 05/30/18 17:08 CONCLUSION: 1. 3 mm anterior communicating aneurysm. 2. Otherwise negative CTA [place]. Neck CTA 05/30/18 17:08 CONCLUSION: 1. Expected postsurgical changes from left carotid endarterectomy. The left carotid system is widely patent. 2. No stenosis in the right carotid. 3. Right dominant vertebral system. Discharge Plan - Discharge Disposition Patient Disposition: Disch W/Home Health Service - Discharge Condition Condition: Stable - Discharge Order Discharge Orders: Discharge Order (Routine); Ordered 06/01/18 Ordered By: John Ross - Discharge Details Anticipated Discharge Date: 06/01/18 - Physicians Team Primary Care Provider: Primary Care Physici,No Attending Provider: John Ross Other Providers: Fannie Lyons MD ; Obey Vanessa MD
== END 2018-06-01 15:28 | disposition home health service (06) ==
LOC: NEPE 12:14 → INTOOBSV 13:47 → NEDA 13:47 → EDBD 13:47 → N03 17:01 → N05 05-30 22:45
PROVIDERS: ADMIT Hospitalist; ATTEND Hospitalist